=== PATIENT | male | born 1955 | race Caucasian/White ===

== ENCOUNTER 2020-10-04 19:04 | Inpatient (IN) ==
[2020-10-04] MEDS ORDERED: SODIUM CHLORIDE 0.9% 500 ML IV STA (19:53)
--- NOTE | 2020-10-04 19:56 | Emergency Department Note ---
Impression & Plan Hepatitis, Acute kidney injury, Abdominal pain, Elevated troponin I level ED Provider Note NAME: KAVIN TENORIO AGE: 64 SEX: M : 1955 ARRIVES VIA: Walk-In INFORMANT: Patient, ED PROVIDER(S): Noé Cano DO CHIEF COMPLAINT: Generalized weakness HPI: The patient is a 64-year-old male who presented to the emergency department for generalized weakness. The patient states that he was seen by his primary care physician recently and had laboratory studies done as an outpatient. The patient was found to have very significant abnormalities in his laboratory studies including his liver function studies as well as his creatinine. He has noticed shortness of breath as well as abdominal pain. He notices upper abdominal pain which began over the course the last few days. He also notices lower extremity swelling. He also notices that he has been very short of breath with any exertion. The patient self does not use alcohol overly. He may drink small amounts of alcoholic beverages but it is not daily. The patient has not been using Tylenol recently. He does not have a history of cirrhosis or hepatitis. He is not had any fevers but he did have a recent episode of bilateral pneumonia last month. He states he was treated with antibiotics. The patient had laboratory studies drawn by his primary care physician he was told to go either to our facility for further work-up or possible admission. The patient states his symptoms are worsened with any exertion. ROS: See above HPI for pertinent positives & negatives. A total of 10 systems reviewed and were otherwise negative. PAST MEDICAL HISTORY: See Below PAST SURGICAL HISTORY: See Below FAMILY HISTORY: See Below SOCIAL HISTORY: See Below HOME MEDICATIONS: See Below ALLERGIES: See Below VITALS: See Below PHYSICAL EXAMINATION: GENERAL: Patient is awake alert in no acute distress patient is resting comfortably and showing no signs of anxiety EYES: The conjunctivae are clear. The pupils are round and reactive. EARS, NOSE, MOUTH AND THROAT: The nose is without any evidence of any deformity. Mucous membranes are moist. Tongue is midline. NECK: The neck is nontender and supple. RESPIRATORY: Normal respiratory effort is noted there is no evidence of wheezing rhonchi or rales CARDIOVASCULAR: Regular rate and rhythm noted there no murmurs rubs or gallops normal S1 normal S2. GASTROINTESTINAL: The abdomen is soft. Abdomen is nontender. PELVIS: The Pelvis is stable. No tenderness to palpation is noted. BACK: No midline tenderness or or step-off noted range of motion in flexion extension as well as rotation no signs of muscle spasm noted MUSCULOSKELETAL/EXTREMITIES: There is no evidence of gross deformity full range of motion is noted in the hips and shoulders. SKIN: There is no obvious evidence of any rash. There are no petechiae, pallor or cyanosis noted. NEUROLOGIC: Patient is awake alert and oriented x3 strength is symmetric patellar reflexes are 2+ bilaterally MEDICAL DECISION MAKING: The patient is a 64-year-old male who presented to the emergency department for an evaluation of upper abdominal pain. The patient has been complaining of symptoms over the course the last 2 weeks. He was treated for pneumonia 2 months ago. He saw his family doctor for the symptoms today and had outpatient laboratory studies drawn which showed very significant abnormalities including abnormal liver function studies and acute kidney injury. The patient was advised to go to [facility] for further evaluation. I discussed the patient's laboratory and radiographic studies with him. Given his findings I also discussed his case with the on-call [facility] hospitalist. They have agreed to evaluate the patient in the emergency department for further management and disposition. Triage Nursing notes reviewed. Prior medical records reviewed Vital Signs: reviewed and remarkable for elevated blood pressure. Differential diagnosis: Etiologies such as appendicitis, diverticulitis, obstruction, inflammatory bowel disease, renal colic, PUD, biliary pathology, pancreatitis, mesenteric ischemia, aortic pathology, infections, genitourinary, UTI, perforated viscus, as well as others were entertained. ER treatment provided: See below Diagnostics interpreted by me: ECG: EKG was obtained in the emergency department. My interpretation is sinus rhythm at 86 bpm. Frequent PVCs were noted. Diffuse ST segment abnormalities were noted. No previous tracing was available for comparison. Cardiac Monitoring: An order was placed for continuous cardiac monitoring. The monitor shows a rate of 88 bpm with sinus with frequent PVCs rhythm. Laboratory studies: As stated above and show below. Imaging studies: See below Consultation(s): I discussed this case with Dr. Cortes. He will evaluate the patient in the emergency department for further management and disposition. Past Med/Surg History Medical History Basal cell carcinoma Diabetes High cholesterol Hypertension Social History (Updated 10/04/20 @ 19:56 by Noé Cano DO) Smoking Status: Former smoker Hx Alcohol Use: Yes Alcohol type: beer Alcohol Intake Frequency: Monthly or Less Preferred Language: Frisian Feels Safe at Home: Yes Allergies Allergies Allergy/AdvReac Type Severity Reaction Status Date / Time Penicillins Allergy Severe Swelling Verified 10/04/20 22:52 of Lip/Tongue/Throat Home Meds Home Medications Medication Instructions Recorded Confirmed aspirin 81 mg tablet,delayed 81 mg PO QA 10/04/20 10/04/20 release (Aspirin Low Dose) bupropion HCl 300 mg 24 hr tablet, 300 mg PO [facility] 10/04/20 10/04/20 extended release cyanocobalamin (vitamin B-12) 1,000 mcg PO QA 10/04/20 10/04/20 1,000 mcg tablet (Vitamin B-12) fenofibrate 160 mg tablet 160 mg PO 10/04/20 10/04/20 glyburide 5 mg-metformin 500 mg 1 tab PO QA 10/04/20 10/04/20 tablet insulin detemir U-100 100 unit/mL 40 unit SUBCUT [facility] 10/04/20 10/04/20 (3 mL) subcutaneous pen (Levemir FlexTouch U-100 Insulin) lisinopril 10 1 tab PO [facility] 10/04/20 10/04/20 mg-hydrochlorothiazide 12.5 mg tablet pravastatin 40 mg tablet 40 mg PO QPM 10/04/20 10/04/20 torsemide 20 mg tablet 20 mg PO QAM 10/04/20 10/04/20 trazodone 100 mg tablet 50 mg PO 10/04/20 10/04/20 Results & Data (ED) Vital Signs Vital Signs - 24 hr 10/04/20 19:18 10/04/20 19:46 10/04/20 19:50 Temperature 36.7 C Temperature Source Temporal Artery Scan Pulse Rate 41 L 87 83 Pulse Rate from SpO2 Sensor Pulse Rhythm Regular Pulse Strength Normal Respiratory Rate 18 28 H 22 Respiratory Effort / Characteristics Non-Labored Spontaneous Respiratory Depth Normal Respiratory Pattern Regular Blood Pressure 158/72 H Blood Pressure Mean 100 Blood Pressure Position Sitting Pulse Oximetry 98 Oxygen Delivery Method Room Air Sepsis Recent Fever Within 48 Hours No Sepsis New/Unexplained Change in Mental Status N/A Sepsis Action Taken by Nursing No Action Required 10/04/20 20:00 10/04/20 20:07 10/04/20 20:10 Temperature Temperature Source Pulse Rate 82 82 Pulse Rate from SpO2 Sensor Pulse Rhythm Pulse Strength Respiratory Rate 28 H 23 Respiratory Effort / Characteristics Respiratory Depth Respiratory Pattern Blood Pressure Blood Pressure Mean Blood Pressure Position Pulse Oximetry 99 Oxygen Delivery Method Room Air Sepsis Recent Fever Within 48 Hours Sepsis New/Unexplained Change in Mental Status Sepsis Action Taken by Nursing 10/04/20 20:20 10/04/20 20:30 10/04/20 20:49 Temperature Temperature Source Pulse Rate 83 84 84 Pulse Rate from SpO2 Sensor Pulse Rhythm Pulse Strength Respiratory Rate 13 30 H 16 Respiratory Effort / Characteristics Respiratory Depth Respiratory Pattern Blood Pressure Blood Pressure Mean Blood Pressure Position Pulse Oximetry Oxygen Delivery Method Sepsis Recent Fever Within 48 Hours Sepsis New/Unexplained Change in Mental Status Sepsis Action Taken by Nursing 10/04/20 20:50 10/04/20 21:00 10/04/20 21:10 Temperature Temperature Source Pulse Rate 83 82 82 Pulse Rate from SpO2 Sensor 41 L 41 L Pulse Rhythm Pulse Strength Respiratory Rate 20 18 23 Respiratory Effort / Characteristics Respiratory Depth Respiratory Pattern Blood Pressure Blood Pressure Mean Blood Pressure Position Pulse Oximetry 98 96 Oxygen Delivery Method Sepsis Recent Fever Within 48 Hours Sepsis New/Unexplained Change in Mental Status Sepsis Action Taken by Nursing 10/04/20 21:20 10/04/20 21:30 Temperature Temperature Source Pulse Rate 83 83 Pulse Rate from SpO2 Sensor 41 L Pulse Rhythm Pulse Strength Respiratory Rate 10 L 16 Respiratory Effort / Characteristics Respiratory Depth Respiratory Pattern Blood Pressure Blood Pressure Mean Blood Pressure Position Pulse Oximetry 99 Oxygen Delivery Method Sepsis Recent Fever Within 48 Hours Sepsis New/Unexplained Change in Mental Status Sepsis Action Taken by Retirement Medications Current Medication List: was personally reviewed by me Laboratory Data Attestation: I reviewed the patient's lab results. Result diagrams: 10/04/20 Unknown 10/04/20 Unknown Lab Results 10/04/20 10/04/20 10/04/20 Range/Units 19:51 21:12 22:14 WBC (4.8-10.8) K/uL RBC (4.7-6.1) M/uL Hgb (14.0-18.0) g/dL Hct (42-52) % MCV (80-100) fL MCH (25-34) pg MCHC (32-36) g/dL RDW Std Deviation (36.4-46.3) fL RDW Coeff of Dwight (11.5-14.5) % Plt Count (130-400) K/uL MPV (7.4-10.4) fL Immature Gran % (Auto) % Neut % (Auto) % Lymph % (Auto) % [place] % (Auto) % Eos % (Auto) % Baso % (Auto) % Neut # (Auto) (1.4-6.5) K/uL Lymph # (Auto) (1.2-3.4) K/uL [place] # (Auto) (0.11-0.59) K/uL Eos # (Auto) (0-0.5) K/uL Baso # (Auto) (0-0.2) K/uL Immature Gran # (Auto) (0.00-0.02) K/uL PT (9.0-12.0) Seconds INR (0.9-1.1) APTT (21.0-31.0) Seconds PTT Ratio Sodium (136-145) mmol/L Potassium (3.5-5.1) mmol/L Chloride (98-107) mmol/L Carbon Dioxide (21-32) mmol/L Anion Gap (3-11) BUN (7-18) mg/dl Creatinine (0.6-1.4) mg/dl Est Cr Clr Drug Dosing ml/min Est GFR ( Amer) ml/min Est GFR (Non-Af Amer) ml/min BUN/Creatinine Ratio (10-20) Glucose (70-99) mg/dl POC Glucose 166 H (70-99) mg/dl Lactate (0.4-2.0) mmol/L Calcium (8.5-10.1) mg/dl Total Bilirubin (0.2-1) mg/dl Direct Bilirubin (0-0.2) mg/dl AST (15-37) U/L ALT (12-78) U/L Alkaline Phosphatase (45-117) U/L Ammonia (11-32) umol/L Troponin I (0-0.045) ng/ml Total Protein (6.4-8.2) gm/dl Albumin (3.4-5.0) gm/dl Lipase (73-393) U/L Acetaminophen (10-30) ug/ml Anaplasma Smear COVID-19 Eval Order Hep Bs Antigen Neg (Neg) Hepatitis C Antibody Neg (Neg) 10/04/20 10/04/20 10/04/20 Range/Units 22:44 Unknown Unknown WBC 13.93 H (4.8-10.8) K/uL RBC 5.30 (4.7-6.1) M/uL Hgb 16.8 (14.0-18.0) g/dL Hct 46.5 (42-52) % MCV 87.7 (80-100) fL MCH 31.7 (25-34) pg MCHC 36.1 H (32-36) g/dL RDW Std Deviation 52.0 H (36.4-46.3) fL RDW Coeff of Dwight 16.3 H (11.5-14.5) % Plt Count 260 (130-400) K/uL MPV 11.9 H (7.4-10.4) fL Immature Gran % (Auto) 0.4 % Neut % (Auto) 72.8 % Lymph % (Auto) 13.3 % [place] % (Auto) 12.8 % Eos % (Auto) 0.2 % Baso % (Auto) 0.5 % Neut # (Auto) 10.14 H (1.4-6.5) K/uL Lymph # (Auto) 1.85 (1.2-3.4) K/uL [place] # (Auto) 1.78 H (0.11-0.59) K/uL Eos # (Auto) 0.03 (0-0.5) K/uL Baso # (Auto) 0.07 (0-0.2) K/uL Immature Gran # (Auto) 0.06 H (0.00-0.02) K/uL PT 15.9 H (9.0-12.0) Seconds INR 1.6 H (0.9-1.1) APTT 30.3 (21.0-31.0) Seconds PTT Ratio 1.2 Sodium (136-145) mmol/L Potassium (3.5-5.1) mmol/L Chloride (98-107) mmol/L Carbon Dioxide (21-32) mmol/L Anion Gap (3-11) BUN (7-18) mg/dl Creatinine (0.6-1.4) mg/dl Est Cr Clr Drug Dosing ml/min Est GFR ( Amer) ml/min Est GFR (Non-Af Amer) ml/min BUN/Creatinine Ratio (10-20) Glucose (70-99) mg/dl POC Glucose (70-99) mg/dl Lactate (0.4-2.0) mmol/L Calcium (8.5-10.1) mg/dl Total Bilirubin (0.2-1) mg/dl Direct Bilirubin (0-0.2) mg/dl AST (15-37) U/L ALT (12-78) U/L Alkaline Phosphatase (45-117) U/L Ammonia (11-32) umol/L Troponin I (0-0.045) ng/ml Total Protein (6.4-8.2) gm/dl Albumin (3.4-5.0) gm/dl Lipase (73-393) U/L Acetaminophen (10-30) ug/ml Anaplasma Smear COVID-19 Eval Order Covid19 at [facility] Hep Bs Antigen (Neg) Hepatitis C Antibody (Neg) 10/04/20 10/04/20 10/04/20 Range/Units Unknown Unknown Unknown WBC (4.8-10.8) K/uL RBC (4.7-6.1) M/uL Hgb (14.0-18.0) g/dL Hct (42-52) % MCV (80-100) fL MCH (25-34) pg MCHC (32-36) g/dL RDW Std Deviation (36.4-46.3) fL RDW Coeff of Dwight (11.5-14.5) % Plt Count (130-400) K/uL MPV (7.4-10.4) fL Immature Gran % (Auto) % Neut % (Auto) % Lymph % (Auto) % [place] % (Auto) % Eos % (Auto) % Baso % (Auto) % Neut # (Auto) (1.4-6.5) K/uL Lymph # (Auto) (1.2-3.4) K/uL [place] # (Auto) (0.11-0.59) K/uL Eos # (Auto) (0-0.5) K/uL Baso # (Auto) (0-0.2) K/uL Immature Gran # (Auto) (0.00-0.02) K/uL PT (9.0-12.0) Seconds INR (0.9-1.1) APTT (21.0-31.0) Seconds PTT Ratio Sodium 135 L (136-145) mmol/L Potassium 4.8 (3.5-5.1) mmol/L Chloride 101 (98-107) mmol/L Carbon Dioxide 23 (21-32) mmol/L Anion Gap 11.0 (3-11) BUN 52 H (7-18) mg/dl Creatinine 2.31 H (0.6-1.4) mg/dl Est Cr Clr Drug Dosing 41.0 ml/min Est GFR ( Amer) 33.8 ml/min Est GFR (Non-Af Amer) 29.2 ml/min BUN/Creatinine Ratio 22.6 H (10-20) Glucose 165 H (70-99) mg/dl POC Glucose (70-99) mg/dl Lactate 2.5 H* (0.4-2.0) mmol/L Calcium 9.6 (8.5-10.1) mg/dl Total Bilirubin 2.1 H (0.2-1) mg/dl Direct Bilirubin 1.4 H (0-0.2) mg/dl AST 2611 H (15-37) U/L ALT 1813 H (12-78) U/L Alkaline Phosphatase 17 L (45-117) U/L Ammonia 32.2 H (11-32) umol/L Troponin I 0.907 H* (0-0.045) ng/ml Total Protein 7.3 (6.4-8.2) gm/dl Albumin 3.5 (3.4-5.0) gm/dl Lipase 523 H (73-393) U/L Acetaminophen (10-30) ug/ml Anaplasma Smear COVID-19 Eval Order Hep Bs Antigen (Neg) Hepatitis C Antibody (Neg) 10/04/20 Range/Units Unknown WBC (4.8-10.8) K/uL RBC (4.7-6.1) M/uL Hgb (14.0-18.0) g/dL Hct (42-52) % MCV (80-100) fL MCH (25-34) pg MCHC (32-36) g/dL RDW Std Deviation (36.4-46.3) fL RDW Coeff of Dwight (11.5-14.5) % Plt Count (130-400) K/uL MPV (7.4-10.4) fL Immature Gran % (Auto) % Neut % (Auto) % Lymph % (Auto) % [place] % (Auto) % Eos % (Auto) % Baso % (Auto) % Neut # (Auto) (1.4-6.5) K/uL Lymph # (Auto) (1.2-3.4) K/uL [place] # (Auto) (0.11-0.59) K/uL Eos # (Auto) (0-0.5) K/uL Baso # (Auto) (0-0.2) K/uL Immature Gran # (Auto) (0.00-0.02) K/uL PT (9.0-12.0) Seconds INR (0.9-1.1) APTT (21.0-31.0) Seconds PTT Ratio Sodium (136-145) mmol/L Potassium (3.5-5.1) mmol/L Chloride (98-107) mmol/L Carbon Dioxide (21-32) mmol/L Anion Gap (3-11) BUN (7-18) mg/dl Creatinine (0.6-1.4) mg/dl Est Cr Clr Drug Dosing ml/min Est GFR ( Amer) ml/min Est GFR (Non-Af Amer) ml/min BUN/Creatinine Ratio (10-20) Glucose (70-99) mg/dl POC Glucose (70-99) mg/dl Lactate (0.4-2.0) mmol/L Calcium (8.5-10.1) mg/dl Total Bilirubin (0.2-1) mg/dl Direct Bilirubin (0-0.2) mg/dl AST (15-37) U/L ALT (12-78) U/L Alkaline Phosphatase (45-117) U/L Ammonia (11-32) umol/L Troponin I (0-0.045) ng/ml Total Protein (6.4-8.2) gm/dl Albumin (3.4-5.0) gm/dl Lipase (73-393) U/L Acetaminophen (10-30) ug/ml Anaplasma Smear Cancelled COVID-19 Eval Order Hep Bs Antigen (Neg) Hepatitis C Antibody (Neg) Administered Medications Discontinued Medications Sodium Chloride (Nss) 500 mls @ 999 mls/hr IV .Q31M STA Stop: 10/04/20 20:23 Last Infusion: 10/04/20 22:18 Dose: 0 mls/hr Documented by: [id number] Admin: 10/04/20 21:34 Dose: 999 mls/hr Documented by: [id number] Lorazepam (Ativan) 1 mg in 2 mls @ 2 mls/min IV NOW STA Stop: 10/04/20 20:27 Last Admin: 10/04/20 20:32 Dose: 2 mls/min Documented by: [id number] Imaging Data Radiologist's Impression: Abdomen/Pelvis CT 10/04/20 19:[address] WITHOUT CONTRAST CT DOSE: 993.06 mGy.cm HISTORY: Acute generalized abdominal pain pain TECHNIQUE: Multiaxial CT images of the abdomen and pelvis were performed without contrast. A dose lowering technique was utilized adhering to the principles of ALARA. COMPARISON STUDY: Chest radiograph of same day, MRI lumbar spine 08/08/2011 FINDINGS: Cardiomegaly. Trace pericardial effusion. Coronary artery calcifications. Trace left and small right pleural effusions. Lung bases are generally clear. No pneumatosis or pneumoperitoneum. Unremarkable spleen, moderately atrophic pancreas, adrenal glands and gallbladder. Suggested mild hepatic steatosis. Trace abdominal pelvic ascites. 2.4 cm hypodense lesion suggestive of a probable cyst involves the inferior pole left kidney. Bilateral renal vascular calcifications with symmetric perinephric stranding. No hydronephrosis. Urinary bladder wall thickening. Mild prostamegaly. Extensive calcified plaque of the abdominal aorta and branch vessels. No adenopathy. No bowel obstruction or bowel wall thickening. Mild colonic diverticulosis. Normal appendix. Contrast opacified loops of small bowel within the pelvis. Tiny fat filled umbilical hernia. Generalized body wall edema. Degenerative changes of the spine, pelvis and hips. IMPRESSION: 1. Cardiomegaly with small right and trace left pleural effusions. 2. Trace abdominal pelvic ascites with body wall edema. 3. No bowel obstruction or bowel wall thickening. 4. Colonic diverticulosis. 5. Mild urinary bladder wall thickening. Correlate with urinalysis to exclude cystitis. ACT 112: Negative or not required by law. The above report was generated using voice recognition software. It may contain grammatical, syntax or spelling errors. Electronically signed by: Gino Briceno M.D. 10/04/2020 8:57 PM Chest X-Ray 10/04/20 19:54 XR chest 1V portable HISTORY: 64 years-old Male SOB acute shortness of breath COMPARISON: None TECHNIQUE: AP and lateral views of the chest FINDINGS: Cardiac silhouette is moderately enlarged. Mild pulmonary vascular congestion. No pneumothorax, large pleural effusion or overt pulmonary edema. No lobar airspace. Azygos fissure. Calcified plaque of the thoracic aorta. Degenerative changes of the shoulders and spine. IMPRESSION: Cardiomegaly with pulmonary vascular congestion. ACT 112: Negative or not required by law. The above report was generated using voice recognition software. It may contain grammatical, syntax or spelling errors. Electronically signed by: Gino Briceno M.D. 10/04/2020 8:34 PM Discharge Plan Visit Data Chief Complaint: Abnormal Labs/Diagnostic Testing Stated Complaint: MULTIPLE LIVER ENZYMES 3,000, REFERRED BY DOCTOR ED Provider: Noé Cano Discharge Problem: Hepatitis, Acute kidney injury, Abdominal pain, Elevated troponin I level Patient Disposition: Being Evaluated by Hospitalist Condition: Good Forms Stand Alone Forms: My [employer] Prescriptions Prescriptions: No Action pravastatin 40 mg tablet 40 mg PO QPM RF: 0 trazodone 100 mg tablet 50 mg PO HS RF: 0 glyburide-metformin 5-500 mg tablet 1 tab PO QAM RF: 0 lisinopril-hydrochlorothiazide 10-12.5 mg tablet 1 tab PO QAM RF: 0 bupropion HCl 300 mg tablet extended release 24 hr 300 mg PO QAM RF: 0 torsemide 20 mg tablet 20 mg PO QAM RF: 0 fenofibrate 160 mg tablet 160 mg PO HS RF: 0 aspirin [Aspirin Low Dose] 81 mg Tablet,Delayed Release (Dr/Ec) 81 mg PO QAM RF: 0 cyanocobalamin (vitamin B-12) [Vitamin B-12] 1,000 mcg Tablet 1,000 mcg PO QAM RF: 0 Levemir FlexTouch U-100 Insuln 100 unit/mL (3 mL) insulin pen 40 unit SUBCUT QAM RF: 0 Referrals Referrals: PCP,NO [Physician] -
[2020-10-04 20:26] LABS: Basophils # (auto) 0.07 K/uL (0-0.2); Basophils % (auto) 0.5 %; Eosinophils # (auto) 0.03 K/uL (0-0.5); Eosinophils % (auto) 0.2 %; Hematocrit (blood only) 46.5 % (42-52); Hemoglobin 16.8 g/dL (14.0-18.0); Immature Granulocytes # (auto) 0.06 K/uL (0.00-0.02); Immature Granulocytes % (auto) 0.4 %; Lymphocytes # (auto) 1.85 K/uL (1.2-3.4); Lymphocytes % (auto) 13.3 %; Mean Corpuscular Hemoglobin 31.7 pg (25-34); Mean Corpuscular Hgb Conc 36.1 g/dL (32-36); Mean Corpuscular Volume 87.7 fL (80-100); Mean Platelet Volume 11.9 fL (7.4-10.4); Monocytes # (auto) 1.78 K/uL (0.11-0.59); Monocytes % (auto) 12.8 %; Neutrophils # (auto) 10.14 K/uL (1.4-6.5); Neutrophils % (auto) 72.8 %; Platelet Count 260 K/uL (130-400); RDW Coefficient of Variation 16.3 % (11.5-14.5); White Blood Count 13.93 K/uL (4.8-10.8)
[2020-10-04] MEDS ORDERED: LORazepam 1 MG/2 ML VIAL IV STA (20:26)
--- NOTE | 2020-10-04 20:36 | XRay Report ---
XR chest 1V portable HISTORY: 64 years-old Male SOB acute shortness of breath COMPARISON: None TECHNIQUE: AP and lateral views of the chest FINDINGS: Cardiac silhouette is moderately enlarged. Mild pulmonary vascular congestion. No pneumothorax, large pleural effusion or overt pulmonary edema. No lobar airspace. Azygos fissure. Calcified plaque of th e thoracic aorta. Degenerative changes of the shoulders and spine. IMPRESSION: Cardiomegaly with pulmonary vascular congestion. ACT 112: Negative or not required by law. The above report was generated using voice recognition software. It may contain grammatical, syntax o r spelling errors. Electronically signed by: Gino Briceno M.D. 10/04/2020 8:34 PM
[2020-10-04 20:48] LABS: Albumin Level 3.5 gm/dl (3.4-5.0); BUN Creatinine Ratio 22.6 (10-20); Bilirubin Direct 1.4 mg/dl (0-0.2); Calcium 9.6 mg/dl (8.5-10.1); Est GFR (African American) 33.8 ml/min; Est GFR (Non-African American) 29.2 ml/min; Potassium 4.8 mmol/L (3.5-5.1)
[2020-10-04 20:50] LABS: INR 1.6 (0.9-1.1); Partial Thromboplastin Ratio 1.2; Partial Thromboplastin Time 30.3 Seconds (21.0-31.0); Prothrombin Time 15.9 Seconds (9.0-12.0)
--- NOTE | 2020-10-04 20:59 | CT Scan Report ---
ABDOMEN AND PELVIS CT WITHOUT CONTRAST CT DOSE: 993.06 mGy.cm HISTORY: Acute generalized abdominal pain pain TECHNIQUE: Multiaxial CT images of the abdomen and pelvis were performed without contrast. A dose lo wering technique was utilized adhering to the principles of ALARA. COMPARISON STUDY: Chest radiograph of same day, MRI lumbar spine 08/08/2011 FINDINGS: Cardiomegaly. Trace pericardial effusion. Coronary artery calcifications. Trace left and sm all right pleural effusions. Lung bases are generally clear. No pneumatosis or pneumoperitoneum. Unre markable spleen, moderately atrophic pancreas, adrenal glands and gallbladder. Suggested mild hepatic steatosis. Trace abdominal pelvic ascites. 2.4 cm hypodense lesion suggestive of a probable cyst involves the inferior pole left kidney. Bilater al renal vascular calcifications with symmetric perinephric stranding. No hydronephrosis. Urinary barb dder wall thickening. Mild prostamegaly. Extensive calcified plaque of the abdominal aorta and branch vessels. No adenopathy. No bowel obstruction or bowel wall thickening. Mild colonic diverticulosis. Normal appendix. Contrast opacified loops of small bowel within the pelvis. Tiny fat filled umbilical hernia. Generalized body wall edema. Degenerative changes of the spine, pelvis and hips. IMPRESSION: 1. Cardiomegaly with small right and trace left pleural effusions. 2. Trace abdominal pelvic ascites with body wall edema. 3. No bowel obstruction or bowel wall thickening. 4. Colonic diverticulosis. 5. Mild urinary bladder wall thickening. Correlate with urinalysis to exclude cystitis. ACT 112: Negative or not required by law. The above report was generated using voice recognition software. It may contain grammatical, syntax o r spelling errors. Electronically signed by: Gino Briceno M.D. 10/04/2020 8:57 PM
[2020-10-04 21:14] LABS: Bilirubin,Total 2.1 mg/dl (0.2-1); Total Protein 7.3 gm/dl (6.4-8.2); Troponin I 0.907 ng/ml (0-0.045)
[2020-10-04 22:24] LABS: Hepatitis B Surf Ag Rflx Conf Neg (Neg)
[2020-10-04 22:58] LABS: Hepatitis C IgG 13Yrs+Old_Rflx Neg (Neg)
--- NOTE | 2020-10-04 23:04 | History & Physical Report ---
Date of Service October 04, 2020 Assessment & Plan (1) Acute liver disease: Plan: Dheeraj Kay is a 64-year-old male with past medical history significant for hypertension, hyperlipidemia, type 2 diabetes; who presents for generalized weakness associated with abdominal pain and outpatient abnormal laboratory studies. Acute liver injury: -Uncertain etiology of patient's acute acute liver injury significantly elevated AST, ALT -Consideration of tickborne illness relation to acute liver injury, portal vein thrombosis, hepatocellular carcinoma, viral illness, toxidrome -Given elevation of AST, ALT, bilirubin, INR, creatinine; patient has any MELD score of 25, and a Child-Crawford class B -CT abdomen pelvis demonstrating trace abdominal pelvic ascites, hepatic steatosis, atrophic pancreas, adrenal glands, and gallbladder -Ammonia level minimally elevated to 32.2, however not associated with encephalopathy -Lipase 523 -Acute hepatitis panel pending -Acetaminophen panel pending -Panel for tickborne illnesses including anaplasmosis, babesiosis, ehrlichiosis pending -ESR, CRP pending -EBV, CMV pending -Urine tox pending -Alpha-fetoprotein pending -Portal vein ultrasound pending Acute kidney injury: -Creatinine of 2.31 on admission -Concerned that this relates to potential liver injury/failure -Continue IV fluids recheck in a.m. Elevated troponin: -Troponin elevated on admission to 0.907 -Not associated with any chest pain, or shortness of breath -Continue to monitor q8h Hypertension/hyperlipidemia: -Holding home oral regimen at this time Type 2 diabetes: -Hold home oral glyburide/Metformin -Sliding scale insulin while in hospital -BSGs AC at bedtime/every 6 while n.p.o. Diet: N.p.o. CODE STATUS: DNI (2) Acute kidney injury: (3) Elevated troponin I level: (4) Abdominal pain: History of Present Illness Primary Care Provider: Sangita Nguyen MD Dheeraj Kay is a 64-year-old male with past medical history significant for hypertension, hyperlipidemia, type 2 diabetes; who presents for generalized weakness associated with abdominal pain and outpatient abnormal laboratory studies. This is worsened over the course of last several days, with this weekend being worse. Laboratory evaluation by his PCP demonstrated abnormal LFTs, as well as abnormal creatinine. For this reason he was sent for further evaluation. Continues to have an upper abdominal pain that is intermittent at times, and not alleviated or improved with repositioning. Is associated with small amount of nausea, but no vomiting. No changes to bowel movements over t his time. Has had a decreased appetite in the setting of this nausea. He does have numerous bug bites and tick bites over his lower extremities, after working in the yard for this last several days prior to this. None of these were concerning to him at first, however given the extent of his fatigue and weakness this became a new concern. Has not been tested for tickborne illnesses Does not drink alcohol, does not utilize recreational drugs. No recent exposures to other illnesses. No known history with viral hepatitis, or cirrhosis; does not know if he was vaccinated against hepatitis A. Allergies Allergy/AdvReac Type Severity Reaction Status Date / Time Penicillins Allergy Severe Swelling Verified 10/04/20 22:52 of Lip/Tongue/Throat Past Med/Surg History Medical History Basal cell carcinoma Diabetes High cholesterol Hypertension Pneumonia (~07/2020) Social History Smoking Status: Former smoker Second Hand Exposure: No; Hx Alcohol Use: Yes Alcohol type: beer and hard liquor Alcohol Intake Frequency: Monthly or Less Hx Substance Use: No Preferred Language: Upper Sorbian Communication Ability: Effective Lvn Required: No Beliefs That Will Affect Care: None Current Living Situation: Spouse Feels Safe at Home: Yes Assistive Devices: Cane and Glasses Review of Systems Review of Systems: All systems reviewed & are unremarkable except as noted in HPI & below Physical Exam Constitutional: WD/WN, vitals as above Eyes: PERRL, conjunctivae normal, anicteric sclerae Respiratory: normal respiratory effort, lungs clear to auscultation Auscultation: no crackles, no rales, no rhonchi and no wheezes Cardiovascular: Rate/Rhythm: regular rate and regular rhythm Heart Sounds: no gallop, no murmur and no cardiac rub Vessels: normal peripheral pulses; no JVD Extremities: no edema Gastrointestinal (Abdomen): Inspection/Auscultation: + abdomen distended and + abdominal edema; no abdominal wall ecchymosis and no visible peristalsis Percussion/Palpation: + abdomen tender, + guarding, abdomen soft, + ascites (Trace) and + tympanic to percussion; abdomen not rigid Skin: no rashes, warm and dry Neurologic: PERRL, EOMI, accommodation nl, no face palsy, no dysarthria CN's II-XI intact bilaterally and moves all extremities Psychiatric: Orientation: alert and oriented x 3 Results & Data Results & Data ([facility]) Vital Signs (Past 12 Hours) Vital Signs Temp Pulse Resp BP Pulse Ox 10/04/20 21:30 83 16 10/04/20 21:20 83 10 L 99 10/04/20 21:10 82 23 96 10/04/20 21:00 82 18 10/04/20 20:50 83 20 98 10/04/20 20:49 84 16 10/04/20 20:30 84 30 H 10/04/20 20:20 83 13 10/04/20 20:10 82 23 10/04/20 20:07 99 10/04/20 20:00 82 28 H 10/04/20 19:50 83 22 10/04/20 19:46 87 28 H 10/04/20 19:18 36.7 C 41 L 18 158/72 H 98 Laboratory Results 10/05/20 10/04/20 10/04/20 Range/Units 01:24 Unknown Unknown WBC (4.8-10.8) K/uL RBC (4.7-6.1) M/uL Hgb (14.0-18.0) g/dL Hct (42-52) % MCV (80-100) fL MCH (25-34) pg MCHC (32-36) g/dL RDW Std Deviation (36.4-46.3) fL RDW Coeff of Dwight (11.5-14.5) % Plt Count (130-400) K/uL MPV (7.4-10.4) fL Immature Gran % (Auto) % Neut % (Auto) % Lymph % (Auto) % [place] % (Auto) % Eos % (Auto) % Baso % (Auto) % Neut # (Auto) (1.4-6.5) K/uL Lymph # (Auto) (1.2-3.4) K/uL [place] # (Auto) (0.11-0.59) K/uL Eos # (Auto) (0-0.5) K/uL Baso # (Auto) (0-0.2) K/uL Immature Gran # (Auto) (0.00-0.02) K/uL PT (9.0-12.0) Seconds INR (0.9-1.1) APTT (21.0-31.0) Seconds PTT Ratio Sodium (136-145) mmol/L Potassium (3.5-5.1) mmol/L Chloride (98-107) mmol/L Carbon Dioxide (21-32) mmol/L Anion Gap (3-11) BUN (7-18) mg/dl Creatinine (0.6-1.4) mg/dl Est Cr Clr Drug Dosing ml/min Est GFR ( Amer) ml/min Est GFR (Non-Af Amer) ml/min BUN/Creatinine Ratio (10-20) Glucose (70-99) mg/dl POC Glucose 166 H (70-99) mg/dl Lactate (0.4-2.0) mmol/L Calcium (8.5-10.1) mg/dl Total Bilirubin (0.2-1) mg/dl Direct Bilirubin (0-0.2) mg/dl AST (15-37) U/L ALT (12-78) U/L Alkaline Phosphatase (45-117) U/L Ammonia 32.2 H (11-32) umol/L Troponin I (0-0.045) ng/ml Total Protein (6.4-8.2) gm/dl Albumin (3.4-5.0) gm/dl Lipase (73-393) U/L Acetaminophen (10-30) ug/ml Anaplasma Smear Cancelled Lyme Disease IgG Ab (Negative) Lyme Disease IgM Ab (Negative) COVID-19 Eval Order SARS-CoV-2 (PCR) (Negative) Hepatitis A IgM Ab Hep Bs Antigen (Neg) Hep B Core IgM Ab Hepatitis C Antibody (Neg) 10/04/20 10/04/20 10/04/20 Range/Units Unknown Unknown Unknown WBC (4.8-10.8) K/uL RBC (4.7-6.1) M/uL Hgb (14.0-18.0) g/dL Hct (42-52) % MCV (80-100) fL MCH (25-34) pg MCHC (32-36) g/dL RDW Std Deviation (36.4-46.3) fL RDW Coeff of Dwight (11.5-14.5) % Plt Count (130-400) K/uL MPV (7.4-10.4) fL Immature Gran % (Auto) % Neut % (Auto) % Lymph % (Auto) % [place] % (Auto) % Eos % (Auto) % Baso % (Auto) % Neut # (Auto) (1.4-6.5) K/uL Lymph # (Auto) (1.2-3.4) K/uL [place] # (Auto) (0.11-0.59) K/uL Eos # (Auto) (0-0.5) K/uL Baso # (Auto) (0-0.2) K/uL Immature Gran # (Auto) (0.00-0.02) K/uL PT 15.9 H (9.0-12.0) Seconds INR 1.6 H (0.9-1.1) APTT 30.3 (21.0-31.0) Seconds PTT Ratio 1.2 Sodium 135 L (136-145) mmol/L Potassium 4.8 (3.5-5.1) mmol/L Chloride 101 (98-107) mmol/L Carbon Dioxide 23 (21-32) mmol/L Anion Gap 11.0 (3-11) BUN 52 H (7-18) mg/dl Creatinine 2.31 H (0.6-1.4) mg/dl Est Cr Clr Drug Dosing 41.0 ml/min Est GFR ( Amer) 33.8 ml/min Est GFR (Non-Af Amer) 29.2 ml/min BUN/Creatinine Ratio 22.6 H (10-20) Glucose 165 H (70-99) mg/dl POC Glucose (70-99) mg/dl Lactate 2.5 H* (0.4-2.0) mmol/L Calcium 9.6 (8.5-10.1) mg/dl Total Bilirubin 2.1 H (0.2-1) mg/dl Direct Bilirubin 1.4 H (0-0.2) mg/dl AST 2611 H (15-37) U/L ALT 1813 H (12-78) U/L Alkaline Phosphatase 17 L (45-117) U/L Ammonia (11-32) umol/L Troponin I 0.907 H* (0-0.045) ng/ml Total Protein 7.3 (6.4-8.2) gm/dl Albumin 3.5 (3.4-5.0) gm/dl Lipase 523 H (73-393) U/L Acetaminophen (10-30) ug/ml Anaplasma Smear Lyme Disease IgG Ab (Negative) Lyme Disease IgM Ab (Negative) COVID-19 Eval Order SARS-CoV-2 (PCR) (Negative) Hepatitis A IgM Ab Hep Bs Antigen (Neg) Hep B Core IgM Ab Hepatitis C Antibody (Neg) 10/04/20 10/04/20 10/04/20 Range/Units Unknown 22:44 22:44 WBC 13.93 H (4.8-10.8) K/uL RBC 5.30 (4.7-6.1) M/uL Hgb 16.8 (14.0-18.0) g/dL Hct 46.5 (42-52) % MCV 87.7 (80-100) fL MCH 31.7 (25-34) pg MCHC 36.1 H (32-36) g/dL RDW Std Deviation 52.0 H (36.4-46.3) fL RDW Coeff of Dwight 16.3 H (11.5-14.5) % Plt Count 260 (130-400) K/uL MPV 11.9 H (7.4-10.4) fL Immature Gran % (Auto) 0.4 % Neut % (Auto) 72.8 % Lymph % (Auto) 13.3 % [place] % (Auto) 12.8 % Eos % (Auto) 0.2 % Baso % (Auto) 0.5 % Neut # (Auto) 10.14 H (1.4-6.5) K/uL Lymph # (Auto) 1.85 (1.2-3.4) K/uL [place] # (Auto) 1.78 H (0.11-0.59) K/uL Eos # (Auto) 0.03 (0-0.5) K/uL Baso # (Auto) 0.07 (0-0.2) K/uL Immature Gran # (Auto) 0.06 H (0.00-0.02) K/uL PT (9.0-12.0) Seconds INR (0.9-1.1) APTT (21.0-31.0) Seconds PTT Ratio Sodium (136-145) mmol/L Potassium (3.5-5.1) mmol/L Chloride (98-107) mmol/L Carbon Dioxide (21-32) mmol/L Anion Gap (3-11) BUN (7-18) mg/dl Creatinine (0.6-1.4) mg/dl Est Cr Clr Drug Dosing ml/min Est GFR ( Amer) ml/min Est GFR (Non-Af Amer) ml/min BUN/Creatinine Ratio (10-20) Glucose (70-99) mg/dl POC Glucose (70-99) mg/dl Lactate (0.4-2.0) mmol/L Calcium (8.5-10.1) mg/dl Total Bilirubin (0.2-1) mg/dl Direct Bilirubin (0-0.2) mg/dl AST (15-37) U/L ALT (12-78) U/L Alkaline Phosphatase (45-117) U/L Ammonia (11-32) umol/L Troponin I (0-0.045) ng/ml Total Protein (6.4-8.2) gm/dl Albumin (3.4-5.0) gm/dl Lipase (73-393) U/L Acetaminophen (10-30) ug/ml Anaplasma Smear See Comment Lyme Disease IgG Ab (Negative) Lyme Disease IgM Ab (Negative) COVID-19 Eval Order Covid19 at [facility] SARS-CoV-2 (PCR) NEGATIVE (Negative) Hepatitis A IgM Ab Hep Bs Antigen (Neg) Hep B Core IgM Ab Hepatitis C Antibody (Neg) 10/04/20 10/04/20 10/04/20 Range/Units 22:14 21:16 21:12 WBC (4.8-10.8) K/uL RBC (4.7-6.1) M/uL Hgb (14.0-18.0) g/dL Hct (42-52) % MCV (80-100) fL MCH (25-34) pg MCHC (32-36) g/dL RDW Std Deviation (36.4-46.3) fL RDW Coeff of Dwight (11.5-14.5) % Plt Count (130-400) K/uL MPV (7.4-10.4) fL Immature Gran % (Auto) % Neut % (Auto) % Lymph % (Auto) % [place] % (Auto) % Eos % (Auto) % Baso % (Auto) % Neut # (Auto) (1.4-6.5) K/uL Lymph # (Auto) (1.2-3.4) K/uL [place] # (Auto) (0.11-0.59) K/uL Eos # (Auto) (0-0.5) K/uL Baso # (Auto) (0-0.2) K/uL Immature Gran # (Auto) (0.00-0.02) K/uL PT (9.0-12.0) Seconds INR (0.9-1.1) APTT (21.0-31.0) Seconds PTT Ratio Sodium (136-145) mmol/L Potassium (3.5-5.1) mmol/L Chloride (98-107) mmol/L Carbon Dioxide (21-32) mmol/L Anion Gap (3-11) BUN (7-18) mg/dl Creatinine (0.6-1.4) mg/dl Est Cr Clr Drug Dosing ml/min Est GFR ( Amer) ml/min Est GFR (Non-Af Amer) ml/min BUN/Creatinine Ratio (10-20) Glucose (70-99) mg/dl POC Glucose (70-99) mg/dl Lactate (0.4-2.0) mmol/L Calcium (8.5-10.1) mg/dl Total Bilirubin (0.2-1) mg/dl Direct Bilirubin (0-0.2) mg/dl AST (15-37) U/L ALT (12-78) U/L Alkaline Phosphatase (45-117) U/L Ammonia (11-32) umol/L Troponin I (0-0.045) ng/ml Total Protein (6.4-8.2) gm/dl Albumin (3.4-5.0) gm/dl Lipase (73-393) U/L Acetaminophen (10-30) ug/ml Anaplasma Smear Lyme Disease IgG Ab Negative (Negative) Lyme Disease IgM Ab Negative (Negative) COVID-19 Eval Order SARS-CoV-2 (PCR) (Negative) Hepatitis A IgM Ab Pending Hep Bs Antigen (Neg) Hep B Core IgM Ab Pending Hepatitis C Antibody (Neg) 10/04/20 10/04/20 Range/Units 21:12 19:51 WBC (4.8-10.8) K/uL RBC (4.7-6.1) M/uL Hgb (14.0-18.0) g/dL Hct (42-52) % MCV (80-100) fL MCH (25-34) pg MCHC (32-36) g/dL RDW Std Deviation (36.4-46.3) fL RDW Coeff of Dwight (11.5-14.5) % Plt Count (130-400) K/uL MPV (7.4-10.4) fL Immature Gran % (Auto) % Neut % (Auto) % Lymph % (Auto) % [place] % (Auto) % Eos % (Auto) % Baso % (Auto) % Neut # (Auto) (1.4-6.5) K/uL Lymph # (Auto) (1.2-3.4) K/uL [place] # (Auto) (0.11-0.59) K/uL Eos # (Auto) (0-0.5) K/uL Baso # (Auto) (0-0.2) K/uL Immature Gran # (Auto) (0.00-0.02) K/uL PT (9.0-12.0) Seconds INR (0.9-1.1) APTT (21.0-31.0) Seconds PTT Ratio Sodium (136-145) mmol/L Potassium (3.5-5.1) mmol/L Chloride (98-107) mmol/L Carbon Dioxide (21-32) mmol/L Anion Gap (3-11) BUN (7-18) mg/dl Creatinine (0.6-1.4) mg/dl Est Cr Clr Drug Dosing ml/min Est GFR ( Amer) ml/min Est GFR (Non-Af Amer) ml/min BUN/Creatinine Ratio (10-20) Glucose (70-99) mg/dl POC Glucose 166 H (70-99) mg/dl Lactate (0.4-2.0) mmol/L Calcium (8.5-10.1) mg/dl Total Bilirubin (0.2-1) mg/dl Direct Bilirubin (0-0.2) mg/dl AST (15-37) U/L ALT (12-78) U/L Alkaline Phosphatase (45-117) U/L Ammonia (11-32) umol/L Troponin I (0-0.045) ng/ml Total Protein (6.4-8.2) gm/dl Albumin (3.4-5.0) gm/dl Lipase (73-393) U/L Acetaminophen (10-30) ug/ml Anaplasma Smear Lyme Disease IgG Ab (Negative) Lyme Disease IgM Ab (Negative) COVID-19 Eval Order SARS-CoV-2 (PCR) (Negative) Hepatitis A IgM Ab Hep Bs Antigen Neg (Neg) Hep B Core IgM Ab Hepatitis C Antibody Neg (Neg) Diagnostic Findings Impressions Abdomen/Pelvis CT 10/04/20 19:[address] WITHOUT CONTRAST CT DOSE: 993.06 mGy.cm HISTORY: Acute generalized abdominal pain pain TECHNIQUE: Multiaxial CT images of the abdomen and pelvis were performed without contrast. A dose lowering technique was utilized adhering to the principles of ALARA. COMPARISON STUDY: Chest radiograph of same day, MRI lumbar spine 08/08/2011 FINDINGS: Cardiomegaly. Trace pericardial effusion. Coronary artery calcifications. Trace left and small right pleural effusions. Lung bases are generally clear. No pneumatosis or pneumoperitoneum. Unremarkable spleen, moderately atrophic pancreas, adrenal glands and gallbladder. Suggested mild hepatic steatosis. Trace abdominal pelvic ascites. 2.4 cm hypodense lesion suggestive of a probable cyst involves the inferior pole left kidney. Bilateral renal vascular calcifications with symmetric perinephric stranding. No hydronephrosis. Urinary bladder wall thickening. Mild prostamegaly. Extensive calcified plaque of the abdominal aorta and branch vessels. No adenopathy. No bowel obstruction or bowel wall thickening. Mild colonic diverticulosis. Normal appendix. Contrast opacified loops of small bowel within the pelvis. Tiny fat filled umbilical hernia. Generalized body wall edema. Degenerative changes of the spine, pelvis and hips. IMPRESSION: 1. Cardiomegaly with small right and trace left pleural effusions. 2. Trace abdominal pelvic ascites with body wall edema. 3. No bowel obstruction or bowel wall thickening. 4. Colonic diverticulosis. 5. Mild urinary bladder wall thickening. Correlate with urinalysis to exclude cystitis. ACT 112: Negative or not required by law. The above report was generated using voice recognition software. It may contain grammatical, syntax or spelling errors. Electronically signed by: Gino Briceno M.D. 10/04/2020 8:57 PM Chest X-Ray 10/04/20 19:54 XR chest 1V portable HISTORY: 64 years-old Male SOB acute shortness of breath COMPARISON: None TECHNIQUE: AP and lateral views of the chest FINDINGS: Cardiac silhouette is moderately enlarged. Mild pulmonary vascular congestion. No pneumothorax, large pleural effusion or overt pulmonary edema. No lobar airspace. Azygos fissure. Calcified plaque of the thoracic aorta. Degenerative changes of the shoulders and spine. IMPRESSION: Cardiomegaly with pulmonary vascular congestion. ACT 112: Negative or not required by law. The above report was generated using voice recognition software. It may contain grammatical, syntax or spelling errors. Electronically signed by: Gino Briceno M.D. 10/04/2020 8:34 PM Medications Administered Home Medication List Medication Instructions Recorded aspirin 81 mg tablet,delayed 81 mg PO QAM 10/04/20 release (Aspirin Low Dose) bupropion HCl 300 mg 24 hr tablet, 300 mg PO QAM 10/04/20 extended release cyanocobalamin (vitamin B-12) 1,000 mcg PO QAM 10/04/20 1,000 mcg tablet (Vitamin B-12) fenofibrate 160 mg tablet 160 mg PO HS 10/04/20 glyburide 5 mg-metformin 500 mg 1 tab PO QAM 10/04/20 tablet insulin detemir U-100 100 unit/mL 40 unit SUBCUT [facility] 10/04/20 (3 mL) subcutaneous pen (Levemir FlexTouch U-100 Insulin) lisinopril 10 1 tab PO QAM 10/04/20 mg-hydrochlorothiazide 12.5 mg tablet pravastatin 40 mg tablet 40 mg PO QPM 10/04/20 torsemide 20 mg tablet 20 mg PO QAM 10/04/20 trazodone 100 mg tablet 50 mg PO HS 10/04/20 Supervising Physician Co-Signing Physician Notes Attending addendum: I have physically seen this patient, have supervised the medical residents activities, and agree with the H&P unless as otherwise noted. Assessment and Plan: Acute liver injury- AST 2611, ALT 1813, total bilirubin 2.1, direct bilirubin 1.4, INR 1.6 order acute hepatitis profile, EBV, CMV, alpha-fetoprotein, ultrasound of portal system Tickborne assessment: Anaplasmosis, babesiosis and ehrlichiosis pending Acetaminophen levels pending WONG- Creatinine 2.31 upon admission Hydration with IV fluids Does not appear to be hepatorenal at this point but needs to be followed closely repeat laboratories in a.m. Consult nephrology Elevated troponin/hypertension the patient will be admitted to telemetry for serial cardiac enzymes, serial EKG's, cardiac rhythm monitoring and a 2-D echocardiogram with Dopplers. Troponin 0.907 upon admission Resident Activity Tracking Resident Involvement: Resident Care Provided Care Provided: Adult Hospital Medicine (1) Abdominal pain Abdominal location: right upper quadrant Qualified Code(s): R10.11 - Right upper quadrant pain
[2020-10-04] MEDS: fentaNYL citrate 100 MCG/2 ML VIAL IV PRN (23:42)
[2020-10-05 00:04] LABS: Lyme Ab IgG w/WB Rflx Negative (Negative); Lyme Ab IgM w/WB Rflx Negative (Negative)
[2020-10-05] MEDS ORDERED: MAGNESIUM HYDROXIDE SUSP 30 ML UDC PO PRN (01:32)
[2020-10-05] MEDS ORDERED: ONDANSETRON INJ 2 MG/ML 2 ML VIAL IV PRN (01:32)
[2020-10-05] MEDS ORDERED: ALUMINUM/MAGNESIUM SUSP 30 ML UDC PO PRN (01:32)
[2020-10-05] MEDS ORDERED: NITROGLYCERIN SL 0.4 MG/TAB TAB SL PRN (01:32)
[2020-10-05] MEDS ORDERED: MoRPHine SULFATE 2 MG/ML CARP IV PRN ×2 (01:32→15:27)
[2020-10-05] MEDS: fentaNYL citrate 100 MCG/2 ML VIAL IV PRN (02:02)
[2020-10-05] MEDS: SODIUM CHLORIDE 0.9% 1000ML 1,000 ML IV SCH ×2 (02:02→11:30)
[2020-10-05] MEDS ORDERED: DEXTROSE 50% 50 ML SYRINGE IV PRN (05:12)
[2020-10-05] MEDS ORDERED: CARBOHYDRATES FOR HYPOGLYCEMIA PO PRN (05:12)
[2020-10-05] MEDS ORDERED: GLUCOSE 40% GEL 15 GM TUBE PO PRN (05:12)
[2020-10-05] MEDS ORDERED: GLUCOSE 10 TABS/TUBE PO PRN (05:12)
[2020-10-05] MEDS ORDERED: GLUCAGON FOR INJ 1 MG VIAL SQ PRN (05:12)
[2020-10-05 07:00] LABS: Appearance Urine Cloudy (Clear); Bilirubin Urine Negative (Negative); Blood Urine Negative (Negative); Color Urine Dark Yellow; Epithelial Cell Urine Auto >30 /lpf (0-5); Glucose Urine UA Negative (Negative); Ketones Urine Trace (Negative); Leukocyte Esterase Urine Negative (Negative); Nitrite Urine Negative (Negative); Protein Urine 1+ (Negative); RBC Urine Automated 0-4 /hpf (0-4); Specific Gravity Urine 1.017 (1.000-1.030); Urobilinogen Urine Negative (Negative)
[2020-10-05 07:17] LABS: Mucus Urine Present (None Prsent)
[2020-10-05 07:20] LABS: Bacteria Urine Automated 1+ (Negative)
[2020-10-05 07:22] LABS: Amphetamines+Metham, Urine Neg (Neg); Barbiturates, Urine Neg (Neg); Benzodiazepine, Urine Neg (Neg); Cocaine, Urine Neg (Neg); MDMA (Ecstacy), Urine Pos (Neg); Methadone, Urine Neg (Neg); Opiate, Urine Neg (Neg); Phencyclidine, Urine Neg (Neg)
[2020-10-05] MEDS: INSULIN ASPART 100 UNITS/ML 3 ML PEN SC SCH ×4 (08:23→21:08)
[2020-10-05] MEDS ORDERED: FUROSEMIDE 40 MG in SYRINGE 0 ML IV ONE (08:30)
--- NOTE | 2020-10-05 08:33 | Electrocardiogram Report ---
Test Reason : Blood Pressure : / mmHG Vent. 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
[2020-10-05 08:47] LABS: Basophils # (auto) 0.04 K/uL (0-0.2); Basophils % (auto) 0.2 %; Eosinophils # (auto) 0.01 K/uL (0-0.5); Eosinophils % (auto) 0.1 %; Hematocrit (blood only) 47.3 % (42-52); Hemoglobin 15.8 g/dL (14.0-18.0); Immature Granulocytes # (auto) 0.08 K/uL (0.00-0.02); Immature Granulocytes % (auto) 0.5 %; Lymphocytes # (auto) 1.17 K/uL (1.2-3.4); Lymphocytes % (auto) 6.7 %; Mean Corpuscular Hemoglobin 29.5 pg (25-34); Mean Corpuscular Hgb Conc 33.4 g/dL (32-36); Mean Corpuscular Volume 88.2 fL (80-100); Mean Platelet Volume 12.2 fL (7.4-10.4); Monocytes # (auto) 1.87 K/uL (0.11-0.59); Monocytes % (auto) 10.7 %; Neutrophils # (auto) 14.33 K/uL (1.4-6.5); Neutrophils % (auto) 81.8 %; Platelet Count 272 K/uL (130-400); RDW Coefficient of Variation 16.7 % (11.5-14.5); RDW Standard Deviation 53.5 fL (36.4-46.3); Red Blood Count 5.36 M/uL (4.7-6.1)
--- NOTE | 2020-10-05 08:55 | Ultrasound Report ---
US duplex portal hepatic veins CLINICAL HISTORY: 64 years-old Male presenting with acute liver injury. TECHNIQUE: Real-time grayscale ultrasound imaging of the upper abdomen was performed for a focused ev aluation at the site of clinical concern. COMPARISON: None. FINDINGS: Liver is normal in size measuring 15.5 cm and show mild diffuse increase in echogenicity and coarseni ng of echotexture which could be seen in hepatic steatosis. No thrombus visualized within splenic, portal and hepatic veins. Hepatopedal flow. IMPRESSION: 1. Hepatic steatosis. No evidence of thrombosis. Hepatopedal flow. ACT 112: Negative or not required by law. Electronically signed by: Ese Blanco DO 10/05/2020 8:54 AM
[2020-10-05] MEDS ORDERED: MoRPHine SULFATE 2 MG/ML CARP IV STA (09:16)
[2020-10-05 09:22] LABS: Albumin Level 3.5 gm/dl (3.4-5.0); BUN Creatinine Ratio 25.7 (10-20); Calcium 9.4 mg/dl (8.5-10.1); Est GFR (African American) 38.8 ml/min; Est GFR (Non-African American) 33.5 ml/min; Potassium 4.9 mmol/L (3.5-5.1)
[2020-10-05 09:41] LABS: Albumin Globulin Ratio 0.9 (0.9-2); Bilirubin,Total 2.2 mg/dl (0.2-1); Globulin 3.9 gm/dl (2.5-4.0); Total Protein 7.4 gm/dl (6.4-8.2); Troponin I 1.05 ng/ml (0-0.045)
--- NOTE | 2020-10-05 09:57 | XCELERA ---
[id number]
--- NOTE | 2020-10-05 10:05 | Medical Student Progress Note ---
Date of Service October 05, 2020 Assessment & Plan (1) Acute heart failure: Plan: Dheeraj Kay is a 64-year-old male with past medical history significant for hypertension, hyperlipidemia, type 2 diabetes; who presented to the ED on 10/04 for generalized weakness, dyspnea, and acutely worsening abdominal pain along with abnormal outpatient laboratory studies. 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 Clinical history, physical exam, labs, imaging suggestive of acute systolic heart failure. Differential includes cardiomyopathy 2/2 HTN, HLD, T2DM, previous infarcts. Likely ischemic cardiomyopathy -Initial diuresis with furosemide 40 mg IV unsuccessful, and given another dose. He was given 3 mg budesonide IV due to inadequate response -Monitor daily I/Os and weight checks -Monitor renal function -Consult cardiology for recommendations- will likely add regimen of JOHNSON inhibitor, beta liliana for decompensated heart failure treatment. Pt may need cardiac catheterization once fluid overload is managed. -CMP, Lipid panel in AM to trend electrolytes, renal function Acute Liver Injury: -Likely secondary to acute heart failure due to hepatic congestion or liver hypoperfusion. Other etiologies were explored such as tickborne illness, portal vein thrombosis, hepatocellular carcinoma, viral illness, toxidrome, and acute pancreatitis; though these etiologies were less likely due to negative workup thus far with some labs still pending -AST: 1404 (downtrending from 2611 on admission), ALT: 1556 (downtrending from 1813 on admission), TBili: 2.2, (DBili: 1.4), Cr: 2.06 (downtrending from 2.31 on admission) -Ammonia level minimally elevated to 32.2, mentions history of recent ataxia, however no associated asterixis or encephalopathy; will repeat ammonia level during hospital stay -Continue trending with CMP in AM; we're expecting improvement with the treatment of heart failure as the underlying cause Acute kidney injury: -Likely secondary to acute heart failure -Creatinine: 2.06 (downtrending from 2.31 on admission); BUN: 53 (vs 52 on admission) -Expected to improve with diuresis -Trend with CMP in AM Hyponatremia: -Na level of 135, likely secondary to acute heart failure -Trend with CMP in AM Hypertension/hyperlipidemia: -Holding home oral regimen at this time -Cardiology consult pending; will likely make recommendations about HTN management Type 2 diabetes: -Hold home oral glyburide/Metformin -Sliding scale insulin while in hospital -BSGs AC at bedtime Diet: DM2 Diet CODE STATUS: DNI (2) Acute liver disease: (3) Acute kidney injury: (4) Elevated troponin I level: (5) Abdominal pain: Abdominal location: right upper quadrant Qualified Code(s): R10.11 - Right upper quadrant pain Admission and Anticipated Discharge Date Admission Date: October 04, 2020 Supervising Attestation I was present for the doty parts of the history and physical obtained by the MS4 Caterina Asher. I have read and edited her documentation. I agree with Ms. Asher's assessment and plan. Attending Physicain Medical Student Supervision Note: I independently interviewed and examined the patient and verified the doty hi story and physical, reviewed labs and image studies, discussed the case with the medical student Caterina Asher and the Resident physician Dr. Zimmerman and agree with the findings and care plan. Subjective Overall, the patient says his pain is relatively unchanged since receiving Fentanyl in the ED overnight. He currently rates his pain as a 6/10. Earlier this morning, he was complaining of some back pain and abdominal pain, and after assessment, congestion was noticed. He was given Lasix. He is lying very still in bed during the interview. Of note, he says he has been having some "imbalance" issues while walking leading up to his admission. Review of Systems Constitutional: + fatigue and + weakness; no fever and no chills Respiratory: + dyspnea Cardiovascular: + dyspnea at rest and + orthopnea Gastrointestinal: + abdominal pain Musculoskeletal: + back pain Integumentary: no pruritus Neurologic: + unsteadiness; no abnormal movements and no confusion Physical Exam Constitutional: well developed, well nourished, + acute distress (moderate), + ill appearing, + obese and + edematous Eyes: + scleral abnormality (slight icteric sclerae in R eye) and PERRL ENMT: Mouth: no oral mucosal abnormality Respiratory: normal respiratory effort Auscultation: + wheezes (inspiratory & expiratory, b/l); no crackles, no rales and no rhonchi Cardiovascular: Rate/Rhythm: regular rate and regular rhythm Heart Sounds: + murmur (vague systolic murmur) Vessels: + JVD (equivocal; difficult to appreciate due to body habitus/position) and normal peripheral pulses Extremities: + pedal edema (2+ b/l) Gastrointestinal (Abdomen): Inspection/Auscultation: + abdomen distended, + abdominal edema and + high-pitched sounds (all 4 quadrants); no abdominal wall ecchymosis, no visible peristalsis, caput medusae absent and Mead-Sr sign absent Percussion/Palpation: + abdomen tender, abdomen soft and + ascites (Trace); abdomen not rigid and no fluid wave Musculoskeletal: Extremities: + petechiae (present on the back) and + lower leg abnormality (?bug & tick bites) Bilateral Neurologic: PERRL, EOMI, accommodation nl, no face palsy, no dysarthria moves all extremities Psychiatric: Orientation: alert Results & Data ([facility]) Vital Signs (Past 12 Hours) Vital Signs Temp Pulse Pulse Resp BP BP Pulse Ox 10/05/20 07:30 36.3 C L 71 18 170/85 H 99 10/05/20 04:22 36.4 C L 82 17 137/81 94 10/05/20 01:32 10/05/20 01:09 36.5 C 82 18 133/104 H 98 Pulse Ox 10/05/20 07:30 10/05/20 04:22 10/05/20 01:32 98 10/05/20 01:09 Laboratory Results Laboratory Results WBC 17.50 K/uL (4.8-10.8) H 10/05/20 08:27 RBC 5.36 M/uL (4.7-6.1) 10/05/20 08:27 Hgb 15.8 g/dL (14.0-18.0) 10/05/20 08:27 Hct 47.3 % (42-52) 10/05/20 08: MCV 88.2 fL (80-100) 10/05/20 08: MCH 29.5 pg (25-34) 10/05/20 08: MCHC 33.4 g/dL (32-36) 10/05/20 08: RDW Std Deviation 53.5 fL (36.4-46.3) H 10/05/20 08: RDW Coeff of Dwight 16.7 % (11.5-14.5) H 10/05/20 08: Plt Count 272 K/uL (130-400) 10/05/20 08: MPV 12.2 fL (7.4-10.4) H 10/05/20 08: Immature Gran % (Auto) 0.5 % 10/05/20 08: Neut % (Auto) 81.8 % 10/05/20 08: Lymph % (Auto) 6.7 % 10/05/20 08: [place] % (Auto) 10.7 % 10/05/20 08:27 Eos % (Auto) 0.1 % 10/05/20 08:27 Baso % (Auto) 0.2 % 10/05/20 08:27 Neut # (Auto) 14.33 K/uL (1.4-6.5) H 10/05/20 08:27 Lymph # (Auto) 1.17 K/uL (1.2-3.4) L 10/05/20 08:27 [place] # (Auto) 1.87 K/uL (0.11-0.59) H 10/05/20 08:27 Eos # (Auto) 0.01 K/uL (0-0.5) 10/05/20 08: Baso # (Auto) 0.04 K/uL (0-0.2) 10/05/20 08: Immature Gran # (Auto) 0.08 K/uL (0.00-0.02) H 10/05/20 08:27 PT 15.9 Seconds (9.0-12.0) H 10/04/20 Unknown INR 1.6 (0.9-1.1) H 10/04/20 Unknown APTT 30.3 Seconds (21.0-31.0) 10/04/20 Unknown PTT Ratio 1.2 10/04/20 Unknown Sodium 135 mmol/L (136-145) L 10/05/20 08:27 Potassium 4.9 mmol/L (3.5-5.1) 10/05/20 08:27 Chloride 104 mmol/L (98-107) 10/05/20 08:27 Carbon Dioxide 20 mmol/L (21-32) L 10/05/20 08:27 Anion Gap 11.0 (3-11) 10/05/20 08:27 BUN 53 mg/dl (7-18) H 10/05/20 08:27 Creatinine 2.06 mg/dl (0.6-1.4) H 10/05/20 08:27 Est Cr Clr Drug Dosing 46.0 ml/min 10/05/20 08:27 Est GFR ( Amer) 38.8 ml/min 10/05/20 08:27 Est GFR (Non-Af Amer) 33.5 ml/min 10/05/20 08:27 BUN/Creatinine Ratio 25.7 (10-20) H 10/05/20 08:27 Glucose 161 mg/dl (70-99) H 10/05/20 08:27 POC Glucose 157 mg/dl (70-99) H 10/05/20 07:17 Lactate 2.5 mmol/L (0.4-2.0) H* 10/04/20 Unknown Calcium 9.4 mg/dl (8.5-10.1) 10/05/20 08:27 Total Bilirubin 2.2 mg/dl (0.2-1) H 10/05/20 08:27 Direct Bilirubin 1.4 mg/dl (0-0.2) H 10/04/20 Unknown AST 1404 U/L (15-37) H 10/05/20 08:27 ALT 1556 U/L (12-78) H 10/05/20 08:27 Alkaline Phosphatase 18 U/L (45-117) L 10/05/20 08:27 Ammonia 32.2 umol/L (11-32) H 10/04/20 Unknown Troponin I 1.050 ng/ml (0-0.045) H* 10/05/20 08:27 NT-Pro-B Natriuret Pep 52166 pg/ml (0-900) H 10/05/20 08:27 Total Protein 7.4 gm/dl (6.4-8.2) 10/05/20 08:27 Albumin 3.5 gm/dl (3.4-5.0) 10/05/20 08:27 Globulin 3.9 gm/dl (2.5-4.0) 10/05/20 08:27 Albumin/Globulin Ratio 0.9 (0.9-2) 10/05/20 08:27 Lipase 523 U/L (73-393) H 10/04/20 Unknown Urine Color Dark Yellow 10/05/20 05:45 Urine Appearance Cloudy (Clear) A 10/05/20 05:45 Urine pH 5.0 (4.5-7.5) 10/05/20 05:45 Ur Specific [place] 1.017 (1.000-1.030) 10/05/20 05:45 Urine Protein 1+ (Negative) H 10/05/20 05:45 Urine Glucose (UA) Negative (Negative) 10/05/20 05:45 Urine Ketones Trace (Negative) H 10/05/20 05:45 Urine Blood Negative (Negative) 10/05/20 05:45 Urine Nitrite Negative (Negative) 10/05/20 05:45 Urine Bilirubin Negative (Negative) 10/05/20 05:45 Urine Urobilinogen Negative (Negative) 10/05/20 05:45 Ur Leukocyte Esterase Negative (Negative) 10/05/20 05:45 Urine WBC (Auto) 10-30 /hpf (0-5) H 10/05/20 05:45 Urine RBC (Auto) 0-4 /hpf (0-4) 10/05/20 05:45 U Hyaline Cast (Auto) 5-10 /lpf (0-5) H 10/05/20 05:45 U Epithel Cells (Auto) >30 /lpf (0-5) H 10/05/20 05:45 Urine Bacteria (Auto) 1+ (Negative) H 10/05/20 05:45 Ur Renal Epithelial Cell Not Reportable 10/05/20 05:45 WBC Casts 5-10 /lpf (0) H 10/05/20 05:45 Urine Mucus Present (None Prsent) A 10/05/20 05:45 Ur Butalbital Confirm Cancelled 10/05/20 05:45 Urine Opiates Screen Cancelled 10/05/20 05:45 Urine Opiates Screen Neg (Neg) 10/05/20 05:45 U Codeine Confrm GC/MS Cancelled 10/05/20 05:45 Ur Morphine (GC/MS) Cancelled 10/05/20 05:45 Ur Hydrocodone (GC/MS) Cancelled 10/05/20 05:45 U Norhydrocodone Conf Cancelled 10/05/20 05:45 Ur Oxycodone Screen Cancelled 10/05/20 05:45 U Noroxycodone Confirm Cancelled 10/05/20 05:45 Ur Oxycodone GC/MS Cancelled 10/05/20 05:45 U Oxymorphone GC/MS Cancelled 10/05/20 05:45 EDDP Confirm Cancelled 10/05/20 05:45 Ur Methadone, Qual Cancelled 10/05/20 05:45 Ur Methadone, Qual Neg (Neg) 10/05/20 05:45 Ur Methadone Cancelled 10/05/20 05:45 Ur Hydromorphone (GC/MS) Cancelled 10/05/20 05:45 Acetaminophen ug/ml (10-30) 10/04/20 22:14 Urine Barbiturates Cancelled 10/05/20 05:45 Urine Barbiturates Neg (Neg) 10/05/20 05:45 Ur Phencyclidine Scrn Cancelled 10/05/20 05:45 Ur Phencyclidine (PCP) Neg (Neg) 10/05/20 05:45 Urine PCP Confirm Cancelled 10/05/20 05:45 Ur Amphetamines Screen Cancelled 10/05/20 05:45 U Amphetamines Confirm Cancelled 10/05/20 05:45 U Amphetamin/Meth Scrn Neg (Neg) 10/05/20 05:45 Methamphetamine GC/MS Cancelled 10/05/20 05:45 MDMA (Ecstasy) Screen Pos (Neg) H 10/05/20 05:45 Ur Amobarbital GC/MS Cancelled 10/05/20 05:45 U Pentobarbital GC/MS Cancelled 10/05/20 05:45 U Phenobarbital GC/MS Cancelled 10/05/20 05:45 U Secobarbital GC/MS Cancelled 10/05/20 05:45 U [id number] GC/MS Cancelled 10/05/20 05:45 U Benzodiazepines Scrn Cancelled 10/05/20 05:45 U Benzodiazepines Scrn Neg (Neg) 10/05/20 05:45 U 7-Aminoclonazepam Screen Cancelled 10/05/20 05:45 Ur Nordiazepam GC/MS Cancelled 10/05/20 05:45 U OH-ethylfluraz GC/MS Cancelled 10/05/20 05:45 U Lorazepam Cnf GC/MS Cancelled 10/05/20 05:45 U Oxazepam Confm GC/MS Cancelled 10/05/20 05:45 Ur Temazepam Cnf GC/MS Cancelled 10/05/20 05:45 U a-Hydroxytriaz GC/MS Cancelled 10/05/20 05:45 U [id number] Cancelled 10/05/20 05:45 Urine Cocaine Cancelled 10/05/20 05:45 Ur Cocaine Metabolite Neg (Neg) 10/05/20 05:45 U Cocaine Metab Confirm Cancelled 10/05/20 05:45 Tetrahydrocannabinol Cancelled 10/05/20 05:45 U Marijuana (THC) Screen Cancelled 10/05/20 05:45 U Marijuana (THC) Screen Neg (Neg) 10/05/20 05:45 Drug Screen Comment Cancelled 10/05/20 05:45 Anaplasma Smear Cancelled 10/04/20 Unknown Anaplasma Smear See Comment 10/04/20 Unknown Lyme Disease IgG Ab Negative (Negative) 10/04/20 21:16 Lyme Disease IgM Ab Negative (Negative) 10/04/20 21:16 COVID-19 Eval Order Covid19 at [facility] 10/04/20 22:44 SARS-CoV-2 (PCR) NEGATIVE (Negative) 10/04/20 22:44 Hep Bs Antigen Neg (Neg) 10/04/20 21:12 Hepatitis C Antibody Neg (Neg) 10/04/20 21:12 Reference Lab Cancelled 10/05/20 05:45 Impressions Abdomen/Pelvis CT 10/04/20 19:[address] WITHOUT CONTRAST CT DOSE: 993.06 mGy.cm HISTORY: Acute generalized abdominal pain pain TECHNIQUE: Multiaxial CT images of the abdomen and pelvis were performed without contrast. A dose lowering technique was utilized adhering to the principles of ALARA. COMPARISON STUDY: Chest radiograph of same day, MRI lumbar spine 08/08/2011 FINDINGS: Cardiomegaly. Trace pericardial effusion. Coronary artery calcifications. Trace left and small right pleural effusions. Lung bases are generally clear. No pneumatosis or pneumoperitoneum. Unremarkable spleen, moderately atrophic pancreas, adrenal glands and gallbladder. Suggested mild hepatic steatosis. Trace abdominal pelvic ascites. 2.4 cm hypodense lesion suggestive of a probable cyst involves the inferior pole left kidney. Bilateral renal vascular calcifications with symmetric perinephric stranding. No hydronephrosis. Urinary bladder wall thickening. Mild prostamegaly. Extensive calcified plaque of the abdominal aorta and branch vess els. No adenopathy. No bowel obstruction or bowel wall thickening. Mild colonic diverticulosis. Normal appendix. Contrast opacified loops of small bowel within the pelvis. Tiny fat filled umbilical hernia. Generalized body wall edema. Degenerative changes of the spine, pelvis and hips. IMPRESSION: 1. Cardiomegaly with small right and trace left pleural effusions. 2. Trace abdominal pelvic ascites with body wall edema. 3. No bowel obstruction or bowel wall thickening. 4. Colonic diverticulosis. 5. Mild urinary bladder wall thickening. Correlate with urinalysis to exclude cystitis. ACT 112: Negative or not required by law. The above report was generated using voice recognition software. It may contain grammatical, syntax or spelling errors. Electronically signed by: Gino Briceno M.D. 10/04/2020 8:57 PM Chest X-Ray 10/04/20 19:54 XR chest 1V portable HISTORY: 64 years-old Male SOB acute shortness of breath COMPARISON: None TECHNIQUE: AP and lateral views of the chest FINDINGS: Cardiac silhouette is moderately enlarged. Mild pulmonary vascular congestion. No pneumothorax, large pleural effusion or overt pulmonary edema. No lobar airspace. Azygos fissure. Calcified plaque of the thoracic aorta. Degenerative changes of the shoulders and spine. IMPRESSION: Cardiomegaly with pulmonary vascular congestion. ACT 112: Negative or not required by law. The above report was generated using voice recognition software. It may contain grammatical, syntax or spelling errors. Electronically signed by: Gino Briceno M.D. 10/04/2020 8:34 PM Portal Vein US 10/04/20 22:55 US duplex portal hepatic veins CLINICAL HISTORY: 64 years-old Male presenting with acute liver injury. TECHNIQUE: Real-time grayscale ultrasound imaging of the upper abdomen was performed for a focused evaluation at the site of clinical concern. COMPARISON: None. FINDINGS: Liver is normal in size measuring 15.5 cm and show mild diffuse increase in echogenicity and coarsening of echotexture which could be seen in hepatic steatosis. No thrombus visualized within splenic, portal and hepatic veins. Hepatopedal flow. IMPRESSION: 1. Hepatic steatosis. No evidence of thrombosis. Hepatopedal flow. ACT 112: Negative or not required by law. Electronically signed by: Ese Blanco DO 10/05/2020 8:54 AM Medications Administered Current Inpatient Medications Al Hydrox/Mg Hydrox/Simethicone (Aluminum/Magnesium Susp 30 Ml Udc) 15 ml PO Q4H PRN PRN Reason: Dyspepsia Stop: 11/04/20 01:31 Dextrose (Dextrose 50% 50 Ml Syringe) 25 - 50 ml IV UD PRN; Protocol PRN Reason: Hypoglycemia Protocol Stop: 11/04/20 05:11 Fentanyl Citrate (Fentanyl Citrate 100 Mcg/2 Ml Vial) 50 mcg IV Q15M PRN PRN Reason: abdominal pain Stop: 10/18/20 22:17 Last Admin: 10/05/20 02:02 Dose: 50 mcg Documented by: Glucagon (Glucagon For Inj 1 Mg Vial) 1 mg SQ UD PRN; Protocol PRN Reason: Hypoglycemia Protocol Stop: 11/04/20 05:11 Glucose (Glucose 10 Tabs/Tube) 4 - 8 tabs PO UD PRN; Protocol PRN Reason: Hypoglycemia Protocol Stop: 11/04/20 05:11 Glucose (Glucose 40% Gel 15 Gm Tube) 15 - 30 gm PO UD PRN; Protocol PRN Reason: Hypoglycemia Protocol Stop: 11/04/20 05:11 Sodium Chloride (Nss 1000ml) 1,000 mls @ 120 mls/hr IV .Q8H20M PATTI Stop: 11/04/20 01:31 Last Infusion: 10/05/20 08:52 Dose: 120 mls/hr Documented by: Insulin Aspart (Insulin Aspart 100 Units/Ml 3 Ml Pen) 0 units SC ACHS PATTI Stop: 11/04/20 07:29 Last Admin: 10/05/20 08:23 Dose: 1 units Documented by: Magnesium Hydroxide (Magnesium Hydroxide Susp 30 Ml Udc) 30 ml PO Q12H PRN PRN Reason: Constipation Stop: 11/04/20 01:31 Miscellaneous (Carbohydrates For Hypoglycemia ) 15 - 30 gm PO UD PRN PRN Reason: Hypoglycemia Protocol Stop: 11/04/20 05:11 Morphine Sulfate (Morphine Sulfate 2 Mg/Ml Carp) 2 mg IV Q30M PRN PRN Reason: Chest Pain Stop: 10/19/20 01:31 Nitroglycerin (Nitroglycerin Sl 0.4 Mg/Tab Tab) 0.4 mg SL UD PRN PRN Reason: Chest Pain Stop: 11/04/20 01:31 Ondansetron HCl (Ondansetron Inj 2 Mg/Ml 2 Ml Vial) 4 mg IV Q6H PRN PRN Reason: Nausea Stop: 11/04/20 01:31 Last Admin: 10/05/20 02:25 Dose: 4 mg Documented by:
[2020-10-05] MEDS ORDERED: FUROSEMIDE 40 MG in SYRINGE 0 ML IV SCH ×2 (11:45→21:00)
[2020-10-05] MEDS ORDERED: FUROSEMIDE 40 MG/4 ML VIAL IV SCH (11:45)
[2020-10-05] MEDS: ENOXAPARIN INJ 40 MG/0.4 ML SYR SQ SCH (13:07)
[2020-10-05] MEDS ORDERED: BUMETANIDE 3 MG in SYRINGE 0 ML IV SCH (14:15)
--- NOTE | 2020-10-05 18:24 | Cardiology Consultation ---
Date of Consultation October 05, 2020 Assessment & Plan (1) Acute on chronic HFrEF (heart failure with reduced ejection fraction): Patient with no known cardiac history but multiple vascular risk factors (dyslipidemia, diabetes, hypertension) who conveys longstanding symptoms consistent with right and left subacute congestive heart failure who is found on echocardiogram to have an ischemic cardiomyopathy (prior infarcts which appear old) with markedly reduced systolic function (EF equals 25-30%). He still appears hypervolemic on exam, case was discussed with Dr. Dutton, agree with more aggressive diuresis (substituting high-dose bumetanide for lower dose furosemide). Obtain daily weights and input/output. Would aggressively afterload reduced, might avoid hydralazine with his liver function abnormalities, could use labetalol (20 mg IV every 4 hours PRN SBP>130 mm Hg, titrated upward as needed). Would initiate carvedilol orally (3.125 mg twice daily, titrated upward as tolerated). Although not manifesting ischemic symptoms, addition of long-acting nitrates could reduce preload (isosorbide mononitrate 30 mg daily). Avoid JOHNSON inhibitors or ARBs in the near term given his renal dysfunction. Will follow along and offer further recommendations based on his hemodynamics and clinical response. (2) Ischemic cardiomyopathy: As noted, no clear history of prior infarcts but evidence on echocardiogram. Would be helpful to obtain records of his hospitalization for "double pneumonia" at [facility] 2 months ago, in particular reviewing the ECGs might allow for better discernment of the timing of his prior infarcts. At some point, once he is clinically stable, would pursue further risk stratification with either dobutamine stress echocardiogram, Lexiscan, or potentially cardiac catheterization (depending upon his renal function). Management of ischemic cardiomyopathy as noted above. (3) Elevated troponin I level: Doubt acute process, his pain is clearly abdominal and not thoracic/chest at all. Elevated troponin likely demand ischemia due to adrenergic state with significant pain, hypertension, and volume overload. Troponin pattern is flat, weighing against acute event. Also, renal dysfunction may result in some degree of chronic troponin elevation. (4) Acute kidney injury: Obtain records to discern baseline renal function. Given elevated creatinine, higher dose diuretic will be needed to achieve volume unloading. Monitor renal function and electrolytes daily. (5) Abdominal pain: At this point, a unifying theme for his abdominal pain would be liver capsule stretch due to hepatic congestion from acute on chronic heart failure from his newly diagnosed ischemic cardiomyopathy. However, given the degree of discomfort he was experiencing it is prudent to continue work-up for other liver pathologies. If his pain is due to hepatic congestion, he should improve fairly quickly with volume unloading. History of Present Illness Reason for Consultation: Elevated troponin, low EF Requesting Physician: Raulito Flores MD Attending Physician: Heidi Dutton MD History of Present Illness 64-year-old man with multiple vascular risk factors (hypertension, dyslipidemia, diabetes mellitus) but no known history of coronary artery disease who was admitted yesterday (10/04/2020) with right upper quadrant abdominal pain and abnormal liver function tests. Due to reduced systolic function/evidence of old infarcts on echocardiogram and markedly elevated proBNP he is undergoing cardiology evaluation. Patient has not felt right for several years, noting dyspnea with minimal exertion, orthopnea, occasional PND, and more recent onset ankle edema. He was hospitalized at [facility] for "double pneumonia" 2 months ago. He denies any knowledge of prior myocardial infarction, cardiomyopathy, or congestive heart failure. He was placed on a diuretic around the time of his hospitalization 2 months ago, but has not been reliably taking it. At the time of my evaluation he was quite uncomfortable with right-sided abdominal pain unrelieved with morphine. He denied chest pain at any time. He denies subjective palpitations, presyncope, or syncope. Allergies Allergy/AdvReac Type Severity Reaction Status Date / Time Penicillins Allergy Severe Swelling Verified 10/04/20 22:52 of Lip/Tongue/Throat Home Medications Medication Instructions Recorded Confirmed Type aspirin 81 mg tablet,delayed 81 mg PO [facility] 10/04/20 10/04/20 History release (Aspirin Low Dose) bupropion HCl 300 mg 24 hr tablet, 300 mg PO [facility] 10/04/20 10/04/20 History extended release cyanocobalamin (vitamin B-12) 1,000 mcg PO [facility] 10/04/20 10/04/20 History 1,000 mcg tablet (Vitamin B-12) fenofibrate 160 mg tablet 160 mg PO 10/04/20 10/04/20 History glyburide 5 mg-metformin 500 mg 1 tab PO [facility] 10/04/20 10/04/20 History tablet insulin detemir U-100 100 unit/mL 40 unit SUBCUT [facility] 10/04/20 10/04/20 History (3 mL) subcutaneous pen (Levemir FlexTouch U-100 Insulin) lisinopril 10 1 tab PO QAM 10/04/20 10/04/20 History mg-hydrochlorothiazide 12.5 mg tablet pravastatin 40 mg tablet 40 mg PO QPM 10/04/20 10/04/20 History torsemide 20 mg tablet 20 mg PO QAM 10/04/20 10/04/20 History trazodone 100 mg tablet 50 mg PO HS 10/04/20 10/04/20 History Patient History Medical History Basal cell carcinoma Diabetes High cholesterol Hypertension Pneumonia (~07/2020) Social History Smoking Status: Former smoker Second Hand Exposure: No; Do You Dip or Chew Tobacco: No; Hx Alcohol Use: Yes Alcohol type: beer and hard liquor Alcohol Intake Frequency: Monthly or Less Hx Substance Use: No Preferred Language: Kyrgyz Communication Ability: Effective Card Fixer Required: No Beliefs That Will Affect Care: None Current Living Situation: Spouse Feels Safe at Home: Yes Safety Concerns: Feels Safe At This Time Assistive Devices: Cane and Glasses Physical Exam Physical Exam: Normal habitus adult white male who appears uncomfortable but not in acute distress. Blood pressure normotensive to moderately hypertensive. Pulse generally in the 80s and regular with ectopy. Skin: no ecchymoses or generalized lesions. HEENT: unremarkable. Neck: Jugular venous pulse two thirds the way to the angle of the jaw with mildly increased respiratory variation, no obvious carotid bruits. Lungs: Mildly decreased breath sounds but generally clear. No obvious wheezes or crackles. Cardiac: regular rhythm with frequent ectopy, normal S1, intact aortic closure sound, 3/6 apical holosystolic murmur rating to the axilla, no diastolic murmur. Abdomen: Right upper quadrant tenderness, no guarding or rigidity. Extremities: 1+ pretibial edema, peripheral pulses intact. Neurologic: Reticent affect (due to pain), answers questions appropriately, grossly nonfocal. Results & Data ([facility]) Vital Signs (Past 12 Hours) Vital Signs Temp Pulse Pulse Resp BP Pulse Ox 10/05/20 15:32 97.3 F L 85 18 196/69 H 96 10/05/20 14:42 88 147/77 H 10/05/20 13:14 84 10/05/20 12:00 97.5 F L 68 20 134/75 97 10/05/20 08:16 86 10/05/20 07:30 97.3 F L 71 18 170/85 H 99 Laboratory Results WBC 17.5 with normal hemoglobin and platelet count. Sodium 135, potassium 4.9, BUN 53, creatinine 2.06 (down from 2.31). Troponin curve elevated but flat (0.9, 1.0, 0.9). proBNP 13,464. AST 1404. ALT 1556. Albumin 3.5. INR 1.6. Diagnostic Findings ECG showed sinus rhythm with old inferior and anterolateral infarcts, bigeminal PVCs. No prior ECG for comparison. No acute ST deviation. Echocardiogram showed EF 25 to 30% with mild to moderate global hypokinesis and inferior and lateral akinesis with inferior wall thinning (consistent with old infarct). Calcified aortic valve with immobilized right coronary cusp and adequate excursion of remaining cusps. At least mild mitral regurgitation. Study was limited due to patient discomfort, no pulses or continuous-wave Doppler obtained. Chest x-ray showed cardiomegaly with mild pulmonary vascular congestion. Liver ultrasound showed normal liver size with increased echogenicity and no thrombus. Abdomen/pelvis CT showed cardiomegaly with small right and trace left effusions, trace pelvic ascites with body wall edema, no other acute process. PG Care Time/CCT Total # of Minutes Spent Total Time Spent with Patient: Total time spent is greater than 50% in coordination of care (as documented) at patient's floor/unit and/or counseling patient: 90 minutes. Coding Level of Care Code 65420 Inpt Consult Level 5 Diagnoses Acute kidney injury N17.9 Abdominal pain R10.11 Abdominal location: right upper quadrant Elevated troponin I level R77.8 Acute on chronic HFrEF (heart failure with reduced ejection fraction) I50.23 Ischemic cardiomyopathy I25.5 (1) Abdominal pain Abdominal location: right upper quadrant Qualified Code(s): R10.11 - Right upper quadrant pain
[2020-10-05] MEDS ORDERED: LABETALOL HCL IV 5 MG/ML 20ML IV PRN (18:51)
[2020-10-05] MEDS ORDERED: diphenhydrAMINE 50 MG/ML VIAL IV STA (23:45)
[2020-10-06] MEDS: fentaNYL citrate 100 MCG/2 ML VIAL IV PRN ×4 (00:17→11:48)
[2020-10-06 06:28] LABS: Nucleated RBC # (auto) 0.13 K/uL (0-0); Nucleated RBC % (auto) 0.5 %
[2020-10-06] MEDS ORDERED: LABETALOL HCL IV 5 MG/ML 20ML IV PRN (06:52)
[2020-10-06 07:05] LABS: Hematocrit (blood only) 51.9 % (42-52); Hemoglobin 17.5 g/dL (14.0-18.0); Mean Corpuscular Hemoglobin 29.7 pg (25-34); Mean Corpuscular Hgb Conc 33.7 g/dL (32-36); Platelet Count 104 K/uL (130-400); RDW Coefficient of Variation 17.6 % (11.5-14.5); RDW Standard Deviation 55.3 fL (36.4-46.3); White Blood Count 25.31 K/uL (4.8-10.8)
[2020-10-06 07:06] LABS: Basophils # (auto) 0.02 K/uL (0-0.2); Basophils % (auto) 0.1 %; Immature Granulocytes # (auto) 0.12 K/uL (0.00-0.02); Immature Granulocytes % (auto) 0.5 %; Lymphocytes # (auto) 1.92 K/uL (1.2-3.4); Lymphocytes % (auto) 7.6 %; Monocytes # (auto) 1.37 K/uL (0.11-0.59); Monocytes % (auto) 5.4 %; Neutrophils # (auto) 21.88 K/uL (1.4-6.5); Neutrophils % (auto) 86.4 %
[2020-10-06 07:26] LABS: Albumin Level 3.6 gm/dl (3.4-5.0); BUN Creatinine Ratio 21.6 (10-20); Calcium 9.3 mg/dl (8.5-10.1); Creatinine Clr Calc Pharmacy 28.2 ml/min; Est GFR (African American) 20.8 ml/min; Globulin 3.5 gm/dl (2.5-4.0); Potassium 5.2 mmol/L (3.5-5.1); Total Protein 7.1 gm/dl (6.4-8.2)
[2020-10-06 07:54] LABS: Estimated Average Glucose 171 mg/dl; Hemoglobin A1C 7.6 % (4.5-5.6)
[2020-10-06] MEDS: INSULIN ASPART 100 UNITS/ML 3 ML PEN SC SCH ×3 (08:07→17:07)
[2020-10-06] MEDS: ENOXAPARIN INJ 40 MG/0.4 ML SYR SQ SCH (08:08)
[2020-10-06] MEDS ORDERED: carvediloL 3.125 MG TAB PO SCH (09:00)
[2020-10-06] MEDS ORDERED: FUROSEMIDE 60 MG in SYRINGE 0 ML IV SCH (09:00)
--- NOTE | 2020-10-06 09:54 | Medical Student Progress Note ---
Date of Service October 06, 2020 Assessment & Plan (1) Acute heart failure: Plan: Dheeraj Kay is a 64-year-old male with past medical history significant for hypertension, hyperlipidemia, type 2 diabetes; who presented to the ED on 10/04 for generalized weakness, dyspnea, and acutely worsening abdominal pain along with abnormal outpatient laboratory studies. 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 Clinical history, physical exam, labs, imaging suggestive of acute systolic heart failure. Differential includes cardiomyopathy 2/2 HTN, HLD, T2DM, previous infarcts. This is most likely, although myocarditis, SD, CAD are also on the differential. -Cardiology consulted: appreciate recommendations. Patient started on carvedilol 3.125 mg PO BID and labetalol 20 mg IV q4h PRN for SBP > 130; once patient is stable, recommending dobutamine stress echo, Lexiscan, or possible cardiac cath (depending on renal function) -Poor urinary output with furosemide and bumetanide diuresis: 800 mL since 1800 on 10/05 -Given worsening BUN (75 from 53) and Cr (3.45 from 2.06), holding diuretics for now and considering dobutamine drip per Cardiology recommendation for management of low output heart failure -Monitor daily I/Os and weight checks -Trend electrolytes, renal function with CMP in AM Acute kidney injury: -Likely secondary to acute heart failure -Creatinine: 3.45 (uptrending from 2.06 on 10/05, 2.31 at admission); BUN: 75 (uptrending from 53 on 10/05, 52 at admission) -Poor urinary output: 700 mL after Rogers insertion at 1800 10/05, only 100 mL since then -Holding diuretics for now and considering dobutamine drip per Cardiology recommendation for management of low output heart failure to increase perfusion to kidneys and increase urinary output -Trend with CMP in AM Confusion: -Patient seeing things in his room that are not there, but it alert and oriented x 3. Possible etiologies include metabolic encephalopathy, delirium 2/2 to hospitalization, elevated ammonia; Ammonia level minimally elevated to 32.2 on 10/05, mentions history of recent ataxia; given recent confusion during exam, repeat ammonia level in AM -Continue to monitor; expecting improvement with treatment of medical illness Acute Liver Injury: -Likely secondary to acute heart failure due to hepatic congestion or liver hypoperfusion. Other etiologies were explored such as tickborne illness, portal vein thrombosis, hepatocellular carcinoma, viral illness, toxidrome, and acute pancreatitis; though these etiologies were less likely due to negative workup thus far with some labs still pending -AST: 1157 (downtrending from 1404 on 10/05, 2611 at admission), ALT: 1344 (downtrending from 1556 on 10/05, 1813 at admission), TBili: 9 (up from 2.2 on 10/05), DBili: 1.4 on 10/05, Cr: 3.75 (uptrending from 2.06 on 10/05, 2.31 at admission); improvement of LFTs is reassuring that the patients illness is most likely not primary hepatic in etiology -Continue trending with CMP in AM; we're expecting improvement with the t reatment of heart failure as the underlying cause Hyponatremia: -Na level of 135, stable from 10/05, likely secondary to acute heart failure resulting in fluid overload -Continue monitoring with CMP in AM Hyperkalemia: -K level of 5.2, likely secondary to acute renal failure and furosemide therapy -Continue monitoring with CMP in AM Thrombocytopenia: -Plts down to 104k from 272k on 10/05 -Presence of bleeding mucous membranes in the mouth, petechiae on the skin -Holding Lovenox due to possibility of medication-induced thrombocytopenia; DVT PPx currently with SCDs, will contact pharmacy to try substituting with fondaparinux -Another possible etiology include liver dysfunction, though not likely with a large acute drop in platelet count and improvement of other liver function tests -Higher risk of acute mesenteric ischemia with low platelets, suspected due to unremitting abdominal pain despite lack of BMs; ordered CT A/P w/o contrast to examine further -Continue to monitor with CBC in AM; will recheck INR Leukocytosis: -WBC 25.31 (uptrending from 17.50 on 10/05, 13.93 on 10/04) -Patient has been afebrile and has not been tachycardic; complains of abdominal and back pain -Possible etiology includes stress reaction from immense pain or urinary infection -U/A on 10/05: cloudy, 1+ protein, 1+ bacteria, WBC casts, 10-30 WBC, trace ketones, 5-10 hyaline cast, >30 epithelial cells, +mucus; Rogers draining clear urine in the room today -UCx pending -Continue to trend with CBC in AM; monitor symptoms Hypertension/Hyperlipidemia: -Holding home oral regimen at this time -Cardiology consult pending; will likely make recommendations about HTN management Type 2 diabetes: -Hold home oral glyburide/Metformin -Sliding scale insulin while in hospital -BSGs AC at bedtime Diet: DM2 Diet CODE STATUS: DNI DVT PPx: SCD (2) Acute liver disease: (3) Acute kidney injury: (4) Elevated troponin I level: (5) Abdominal pain: Abdominal location: right upper quadrant Qualified Code(s): R10.11 - Right upper quadrant pain Admission and Anticipated Discharge Date Admission Date: October 04, 2020 Supervising Attestation I was present for the history and physical exam obtained by the medical student JAMES Asher. I independently interviewed and examined the patient. I discussed the case with the MS4 and have read and edited her documentation as appropriate. -Cyndee Zimmerman, PGY1 FCM Subjective Overall, the patient says his pain is worse than yesterday - rating it "off the chart" when asked what his pain is from 0-10. He says his pain is "all over", but says it is most painful in his abdominal region, particularly in the right upper quadrant. He was given Fentanyl while conducting the interview and he is lying very still in bed. Of note, he makes note of seeing things that are not in the room, such as pumpkins in the corner.. Review of Systems Constitutional: + fatigue and + weakness; no fever and no chills Cardiovascular: + dyspnea at rest and + orthopnea Gastrointestinal: + abdominal pain Musculoskeletal: + back pain Neurologic: + confusion; no abnormal movements Physical Exam Constitutional: well developed, well nourished, + acute distress (mild), + ill appearing, + obese and + edematous Eyes: + scleral abnormality (slight icteric sclerae in R eye) ENMT: Mouth: + oral mucosal abnormality (dried blood on MM) Respiratory: normal respiratory effort Auscultation: + wheezes (inspiratory & expiratory, b/l); no crackles, no rales and no rhonchi Cardiovascular: Rate/Rhythm: regular rate and regular rhythm Heart Sounds: + murmur (systolic murmur - RUSB) Vessels: + JVD (equivocal on R side; difficult to appreciate due to body habitus/position) and normal peripheral pulses Extremities: + pedal edema (2+ b/l) Gastrointestinal (Abdomen): Inspection/Auscultation: + abdomen distended, + abdominal edema and + high-pitched sounds (all 4 quadrants); no abdominal wall ecchymosis, no visible peristalsis, caput medusae absent and Mead-Sr sign absent Percussion/Palpation: + abdomen tender, abdomen soft and + ascites (Trace); abdomen not rigid and no fluid wave Musculoskeletal: Extremities: + petechiae (present on the back) and + lower leg abnormality (?bug & tick bites) Neurologic: + confused Psychiatric: Orientation: alert and oriented x 3 Results & Data ([facility]) Vital Signs (Past 12 Hours) Vital Signs Temp Pulse Pulse Resp BP Pulse Ox Pulse Ox 10/06/20 07:42 36.2 C L 87 18 143/87 H 95 10/06/20 03:50 159/107 H 10/06/20 03:46 36.4 C L 93 H 20 176/111 H 98 10/06/20 01:32 98 10/06/20 01:31 94 H 10/05/20 23:27 35.7 C L 89 28 H 161/120 H 98 Laboratory Results Laboratory Results WBC 25.31 K/uL (4.8-10.8) H 10/06/20 05:50 RBC 5.90 M/uL (4.7-6.1) 10/06/20 05:50 Hgb 17.5 g/dL (14.0-18.0) 10/06/20 05:50 Hct 51.9 % (42-52) 10/06/20 05:50 MCV 88.0 fL (80-100) 10/06/20 05:50 MCH 29.7 pg (25-34) 10/06/20 05:50 MCHC 33.7 g/dL (32-36) 10/06/20 05:50 RDW Std Deviation 55.3 fL (36.4-46.3) H 10/06/20 05:50 RDW Coeff of Dwight 17.6 % (11.5-14.5) H 10/06/20 05:50 Plt Count 104 K/uL (130-400) L D 10/06/20 05:50 MPV 12.2 fL (7.4-10.4) H 10/05/20 08:27 Immature Gran % (Auto) 0.5 % 10/06/20 05:50 Neut % (Auto) 86.4 % 10/06/20 05:50 Lymph % (Auto) 7.6 % 10/06/20 05:50 [place] % (Auto) 5.4 % 10/06/20 05:50 Eos % (Auto) 0.0 % 10/06/20 05:50 Baso % (Auto) 0.1 % 10/06/20 05:50 Neut # (Auto) 21.88 K/uL (1.4-6.5) H 10/06/20 05:50 Lymph # (Auto) 1.92 K/uL (1.2-3.4) 10/06/20 05:50 [place] # (Auto) 1.37 K/uL (0.11-0.59) H 10/06/20 05:50 Eos # (Auto) 0.00 K/uL (0-0.5) 10/06/20 05:50 Baso # (Auto) 0.02 K/uL (0-0.2) 10/06/20 05:50 Immature Gran # (Auto) 0.12 K/uL (0.00-0.02) H 10/06/20 05:50 Absolute Nucleated RBC 0.13 K/uL (0-0) H 10/06/20 05:50 Nucleated RBC % (auto) 0.5 % 10/06/20 05:50 PT 15.9 Seconds (9.0-12.0) H 10/04/20 Unknown INR 1.6 (0.9-1.1) H 10/04/20 Unknown APTT 30.3 Seconds (21.0-31.0) 10/04/20 Unknown PTT Ratio 1.2 10/04/20 Unknown Sodium 135 mmol/L (136-145) L 10/06/20 05:50 Potassium 5.2 mmol/L (3.5-5.1) H 10/06/20 05:50 Chloride 101 mmol/L (98-107) 10/06/20 05:50 Carbon Dioxide 21 mmol/L (21-32) 10/06/20 05:50 Anion Gap 13.0 (3-11) H 10/06/20 05:50 BUN 75 mg/dl (7-18) H 10/06/20 05:50 Creatinine 3.45 mg/dl (0.6-1.4) H D 10/06/20 05:50 Est Cr Clr Drug Dosing 28.2 ml/min 10/06/20 05:50 Est GFR ( Amer) 20.8 ml/min 10/06/20 05:50 Est GFR (Non-Af Amer) 18.0 ml/min 10/06/20 05:50 BUN/Creatinine Ratio 21.6 (10-20) H 10/06/20 05:50 Glucose 174 mg/dl (70-99) H 10/06/20 05:50 POC Glucose 170 mg/dl (70-99) H 10/06/20 07:15 Estimat Average Glucose 171 mg/dl 10/06/20 05:50 Hemoglobin A1c 7.6 % (4.5-5.6) H 10/06/20 05:50 Lactate 2.5 mmol/L (0.4-2.0) H* 10/04/20 Unknown Calcium 9.3 mg/dl (8.5-10.1) 10/06/20 05:50 Magnesium 2.0 mg/dl (1.8-2.4) 10/06/20 05:50 Total Bilirubin 9.0 mg/dl (0.2-1) H D 10/06/20 05:50 Direct Bilirubin 1.4 mg/dl (0-0.2) H 10/04/20 Unknown AST 1157 U/L (15-37) H 10/06/20 05:50 ALT 1344 U/L (12-78) H 10/06/20 05:50 Alkaline Phosphatase 26 U/L (45-117) L 10/06/20 05:50 Ammonia 32.2 umol/L (11-32) H 10/04/20 Unknown Troponin I 0.925 ng/ml (0-0.045) H* 10/05/20 13:18 NT-Pro-B Natriuret Pep 74789 pg/ml (0-900) H 10/05/20 08:27 Total Protein 7.1 gm/dl (6.4-8.2) 10/06/20 05:50 Albumin 3.6 gm/dl (3.4-5.0) 10/06/20 05:50 Globulin 3.5 gm/dl (2.5-4.0) 10/06/20 05:50 Albumin/Globulin Ratio 1.0 (0.9-2) 10/06/20 05:50 Lipase 523 U/L (73-393) H 10/04/20 Unknown Specimen Hemolysis 10/06/20 05:50 Urine Color Dark Yellow 10/05/20 05:45 Urine Appearance Cloudy (Clear) A 10/05/20 05:45 Urine pH 5.0 (4.5-7.5) 10/05/20 05:45 Ur Specific [place] 1.017 (1.000-1.030) 10/05/20 05:45 Urine Protein 1+ (Negative) H 10/05/20 05:45 Urine Glucose (UA) Negative (Negative) 10/05/20 05:45 Urine Ketones Trace (Negative) H 10/05/20 05:45 Urine Blood Negative (Negative) 10/05/20 05:45 Urine Nitrite Negative (Negative) 10/05/20 05:45 Urine Bilirubin Negative (Negative) 10/05/20 05:45 Urine Urobilinogen Negative (Negative) 10/05/20 05:45 Ur Leukocyte Esterase Negative (Negative) 10/05/20 05:45 Urine WBC (Auto) 10-30 /hpf (0-5) H 10/05/20 05:45 Urine RBC (Auto) 0-4 /hpf (0-4) 10/05/20 05:45 U Hyaline Cast (Auto) 5-10 /lpf (0-5) H 10/05/20 05:45 U Epithel Cells (Auto) >30 /lpf (0-5) H 10/05/20 05:45 Urine Bacteria (Auto) 1+ (Negative) H 10/05/20 05:45 Ur Renal Epithelial Cell Not Reportable 10/05/20 05:45 WBC Casts 5-10 /lpf (0) H 10/05/20 05:45 Urine Mucus Present (None Prsent) A 10/05/20 05:45 Ur Butalbital Confirm Cancelled 10/05/20 05:45 Urine Opiates Screen Cancelled 10/05/20 05:45 Urine Opiates Screen Neg (Neg) 10/05/20 05:45 U Codeine Confrm GC/MS Cancelled 10/05/20 05:45 Ur Morphine (GC/MS) Cancelled 10/05/20 05:45 Ur Hydrocodone (GC/MS) Cancelled 10/05/20 05:45 U Norhydrocodone Conf Cancelled 10/05/20 05:45 Ur Oxycodone Screen Cancelled 10/05/20 05:45 U Noroxycodone Confirm Cancelled 10/05/20 05:45 Ur Oxycodone GC/MS Cancelled 10/05/20 05:45 U Oxymorphone GC/MS Cancelled 10/05/20 05:45 EDDP Confirm Cancelled 10/05/20 05:45 Ur Methadone, Qual Cancelled 10/05/20 05:45 Ur Methadone, Qual Neg (Neg) 10/05/20 05:45 Ur Methadone Cancelled 10/05/20 05:45 Ur Hydromorphone (GC/MS) Cancelled 10/05/20 05:45 Acetaminophen ug/ml (10-30) 10/04/20 22:14 Urine Barbiturates Cancelled 10/05/20 05:45 Urine Barbiturates Neg (Neg) 10/05/20 05:45 Ur Phencyclidine Scrn Cancelled 10/05/20 05:45 Ur Phencyclidine (PCP) Neg (Neg) 10/05/20 05:45 Urine PCP Confirm Cancelled 10/05/20 05:45 Ur Amphetamines Screen Cancelled 10/05/20 05:45 U Amphetamines Confirm Cancelled 10/05/20 05:45 U Amphetamin/Meth Scrn Neg (Neg) 10/05/20 05:45 Methamphetamine GC/MS Cancelled 10/05/20 05:45 MDMA (Ecstasy) Screen Pos (Neg) H 10/05/20 05:45 Ur Amobarbital GC/MS Cancelled 10/05/20 05:45 U Pentobarbital GC/MS Cancelled 10/05/20 05:45 U Phenobarbital GC/MS Cancelled 10/05/20 05:45 U Secobarbital GC/MS Cancelled 10/05/20 05:45 U [id number] GC/MS Cancelled 10/05/20 05:45 U Benzodiazepines Scrn Cancelled 10/05/20 05:45 U Benzodiazepines Scrn Neg (Neg) 10/05/20 05:45 U 7-Aminoclonazepam Screen Cancelled 10/05/20 05:45 Ur Nordiazepam GC/MS Cancelled 10/05/20 05:45 U OH-ethylfluraz GC/MS Cancelled 10/05/20 05:45 U Lorazepam Cnf GC/MS Cancelled 10/05/20 05:45 U Oxazepam Confm GC/MS Cancelled 10/05/20 05:45 Ur Temazepam Cnf GC/MS Cancelled 10/05/20 05:45 U a-Hydroxytriaz GC/MS Cancelled 10/05/20 05:45 U [id number] Cancelled 10/05/20 05:45 Urine Cocaine Cancelled 10/05/20 05:45 Ur Cocaine Metabolite Neg (Neg) 10/05/20 05:45 U Cocaine Metab Confirm Cancelled 10/05/20 05:45 Tetrahydrocannabinol Cancelled 10/05/20 05:45 U Marijuana (THC) Screen Cancelled 10/05/20 05:45 U Marijuana (THC) Screen Neg (Neg) 10/05/20 05:45 Drug Screen Comment Cancelled 10/05/20 05:45 Anaplasma Smear Cancelled 10/04/20 Unknown Anaplasma Smear See Comment 10/04/20 Unknown Lyme Disease IgG Ab Negative (Negative) 10/04/20 21:16 Lyme Disease IgM Ab Negative (Negative) 10/04/20 21:16 COVID-19 Eval Order Covid19 at [facility] 10/04/20 22:44 SARS-CoV-2 (PCR) NEGATIVE (Negative) 10/04/20 22:44 Hep Bs Antigen Neg (Neg) 10/04/20 21:12 Hepatitis C Antibody Neg (Neg) 10/04/20 21:12 Reference Lab Cancelled 10/05/20 05:45 Impressions Abdomen/Pelvis CT 10/04/20 19:[address] WITHOUT CONTRAST CT DOSE: 993.06 mGy.cm HISTORY: Acute generalized abdominal pain pain TECHNIQUE: Multiaxial CT images of the abdomen and pelvis were performed without contrast. A dose lowering technique was utilized adhering to the principles of ALARA. COMPARISON STUDY: Chest radiograph of same day, MRI lumbar spine 08/08/2011 FINDINGS: Cardiomegaly. Trace pericardial effusion. Coronary artery calcifications. Trace left and small right pleural effusions. Lung bases are generally clear. No pneumatosis or pneumoperitoneum. Unremarkable spleen, moderately atrophic pancreas, adrenal glands and gallbladder. Suggested mild hepatic steatosis. Trace abdominal pelvic ascites. 2.4 cm hypodense lesion suggestive of a probable cyst involves the inferior pole left kidney. Bilateral renal vascular calcifications with symmetric perinephric stranding. No hydronephrosis. Urinary bladder wall thickening. Mild prostamegaly. Extensive calcified plaque of the abdominal aorta and branch vessels. No adenopathy. No bowel obstruction or bowel wall thickening. Mild colonic diverticulosis. Normal appendix. Contrast opacified loops of small bowel within the pelvis. Tiny fat filled umbilical hernia. Generalized body wall edema. Degenerative changes of the spine, pelvis and hips. IMPRESSION: 1. Cardiomegaly with small right and trace left pleural effusions. 2. Trace abdominal pelvic ascites with body wall edema. 3. No bowel obstruction or bowel wall thickening. 4. Colonic diverticulosis. 5. Mild urinary bladder wall thickening. Correlate with urinalysis to exclude cystitis. ACT 112: Negative or not required by law. The above report was generated using voice recognition software. It may contain grammatical, syntax or spelling errors. Electronically signed by: Gino Briceno M.D. 10/04/2020 8:57 PM Chest X-Ray 10/04/20 19:54 XR chest 1V portable HISTORY: 64 years-old Male SOB acute shortness of breath COMPARISON: None TECHNIQUE: AP and lateral views of the chest FINDINGS: Cardiac silhouette is moderately enlarged. Mild pulmonary vascular congestion. No pneumothorax, large pleural effusion or overt pulmonary edema. No lobar airspace. Azygos fissure. Calcified plaque of the thoracic aorta. Degenerative changes of the shoulders and spine. IMPRESSION: Cardiomegaly with pulmonary vascular congestion. ACT 112: Negative or not required by law. The above report was generated using voice recognition software. It may contain grammatical, syntax or spelling errors. Electronically signed by: Gino Briceno M.D. 10/04/2020 8:34 PM Portal Vein US 10/04/20 22:55 US duplex portal hepatic veins CLINICAL HISTORY: 64 years-old Male presenting with acute liver injury. TECHNIQUE: Real-time grayscale ultrasound imaging of the upper abdomen was performed for a focused evaluation at the site of clinical concern. COMPARISON: None. FINDINGS: Liver is normal in size measuring 15.5 cm and show mild diffuse increase in echogenicity and coarsening of echotexture which could be seen in hepatic steatosis. No thrombus visualized within splenic, portal and hepatic veins. Hepatopedal flow. IMPRESSION: 1. Hepatic steatosis. No evidence of thrombosis. Hepatopedal flow. ACT 112: Negative or not required by law. Electronically signed by: Ese Blanco DO 10/05/2020 8:54 AM Medications Administered Current Inpatient Medications Al Hydrox/Mg Hydrox/Simethicone (Aluminum/Magnesium Susp 30 Ml Udc) 15 ml PO Q4H PRN PRN Reason: Dyspepsia Stop: 11/04/20 01:31 Carvedilol (Carvedilol 3.125 Mg Tab) 3.125 mg PO BID [facility] Stop: 11/05/20 08:59 Last Admin: 10/06/20 08:18 Dose: 3.125 mg Documented by: Dextrose (Dextrose 50% 50 Ml Syringe) 25 - 50 ml IV UD PRN; Protocol PRN Reason: Hypoglycemia Protocol Stop: 11/04/20 05:11 Enoxaparin Sodium (Enoxaparin Inj 40 Mg/0.4 Ml Syr) 40 mg SQ QAM PATTI Stop: 11/04/20 11:44 Last Admin: 10/06/20 08:08 Dose: 40 mg Documented by: Fentanyl Citrate (Fentanyl Citrate 100 Mcg/2 Ml Vial) 50 mcg IV Q30M PRN PRN Reason: abdominal pain Stop: 10/19/20 23:58 Last Admin: 10/06/20 08:04 Dose: 50 mcg Documented by: Glucagon (Glucagon For Inj 1 Mg Vial) 1 mg SQ UD PRN; Protocol PRN Reason: Hypoglycemia Protocol Stop: 11/04/20 05:11 Glucose (Glucose 10 Tabs/Tube) 4 - 8 tabs PO UD PRN; Protocol PRN Reason: Hypoglycemia Protocol Stop: 11/04/20 05:11 Glucose (Glucose 40% Gel 15 Gm Tube) 15 - 30 gm PO UD PRN; Protocol PRN Reason: Hypoglycemia Protocol Stop: 11/04/20 05:11 Insulin Aspart (Insulin Aspart 100 Units/Ml 3 Ml Pen) 0 units SC ACHS PATTI Stop: 11/04/20 07:29 Last Admin: 10/06/20 08:07 Dose: 1 units Documented by: Labetalol HCl (Labetalol Hcl Iv 5 Mg/Ml 20ml) 20 mg IV Q4H PRN PRN Reason: SBP GREATER THAN 130 Stop: 11/04/20 18:50 Magnesium Hydroxide (Magnesium Hydroxide Susp 30 Ml Udc) 30 ml PO Q12H PRN PRN Reason: Constipation Stop: 11/04/20 01:31 Miscellaneous (Carbohydrates For Hypoglycemia ) 15 - 30 gm PO UD PRN PRN Reason: Hypoglycemia Protocol Stop: 11/04/20 05:11 Morphine Sulfate (Morphine Sulfate 2 Mg/Ml Carp) 2 mg IV Q30M PRN PRN Reason: Chest Pain Stop: 10/19/20 01:31 Nitroglycerin (Nitroglycerin Sl 0.4 Mg/Tab Tab) 0.4 mg SL UD PRN PRN Reason: Chest Pain Stop: 11/04/20 01:31 Ondansetron HCl (Ondansetron Inj 2 Mg/Ml 2 Ml Vial) 4 mg IV Q6H PRN PRN Reason: Nausea Stop: 11/04/20 01:31 Last Admin: 10/05/20 02:25 Dose: 4 mg Documented by:
--- NOTE | 2020-10-06 12:26 | CT Scan Report ---
ABDOMEN AND PELVIS CT WITHOUT CONTRAST CT DOSE: 672.63 mGy.cm HISTORY: Acute generalized abdominal pain Unremitting abdominal pain TECHNIQUE: Multiaxial CT images of the abdomen and pelvis were performed without contrast. A dose lo wering technique was utilized adhering to the principles of ALARA. COMPARISON STUDY: 10/04/2020 FINDINGS: Cardiomegaly with extensive coronary artery calcifications and trace pericardial effusion. Small left and small moderate right pleural effusions, increased in size from comparison. Minimal subsegmental bibasilar atelectasis. Study is limited by respiratory motion artifact and lack of IV contrast. No pn eumatosis or pneumoperitoneum. The unenhanced spleen and adrenal glands are unremarkable. Increased a ttenuation of the gallbladder may represent gallbladder sludge. Unremarkable liver. Small volume of a bdominal pelvic ascites with body wall edema has progressed from comparison. There is mild peripancre atic and mesenteric edema. Perinephric stranding is unchanged from comparison. 2.4 cm hypodensities suggestive of a cyst is agai n noted involving the inferior pole left kidney. Bilateral renal vascular calcifications. Rogers lexi ter present within a decompressed urinary bladder which demonstrates wall thickening with perivesicul ar stranding. The bladder lumen is likely secondary to instrumentation. Extensive calcified plaque of the aorta. No adenopathy. No bowel obstruction or bowel wall thickening. Mild colonic diverticulosis. Enteric cont rast is noted within the cecum. The appendix appears noninflamed. Degenerative changes of the spine, pelvis and hips. IMPRESSION: 1. Cardiomegaly with fluid overload. Increased size of the pleural effusions with small volume of abd ominopelvic ascites and anasarca. 2. Edema/fluid within the lesser sac is likely secondary to fluid overload. Correlation should be mad e with pancreatic enzymes to exclude pancreatitis. 3. No bowel obstruction or bowel wall thickening. 4. Additional findings as above. ACT 112: Negative or not required by law. The above report was generated using voice recognition software. It may contain grammatical, syntax o r spelling errors. Electronically signed by: Gino Briceno M.D. 10/06/2020 12:24 PM
--- NOTE | 2020-10-06 12:34 | Cardiology Progress Note ---
Date of Service October 06, 2020 Assessment & Plan (1) Abdominal pain: Plan: Etiology seems much less likely to be liver capsular swelling/hepatic congestion from acute on chronic systolic heart failure, given his increasing pain despite attempts at diuresis, his increasing leukocytosis, and his decreasing liver enzymes in the face of increasing pain. Also, he is able to lie flat and has no dyspnea and is not demonstrating evidence of progressive or severe heart fa ilure, which would be expected to occur concurrently if hepatic congestion were worsening. Repeat noncontrast abdominal/pelvic CT suggest possibility of gallbladder and/or pancreatic disease. Ischemic bowel is a consideration but no bowel thickening seen on CT. Recommend surgical evaluation given the severity of his abdominal discomfort. (2) Acute on chronic HFrEF (heart failure with reduced ejection fraction): Plan: Agree with further attempts at afterload reduction with carvedilol. Avoiding JOHNSON inhibitor/ARB with renal dysfunction. Hold on diuresis given acute elevation of creatinine/worsening renal function. Continue IV labetalol for acute BP lowering. Will attempt limited follow-up echocardiogram to reassess LV function (may be difficult given patient's abdominal pain and limited cooperation during study yesterday). (3) Ischemic cardiomyopathy: Plan: Reassess LV function if possible. (4) Acute kidney injury: Plan: Holding diuretics. Admission and Anticipated Discharge Date Admission Date: October 04, 2020 Subjective Patient complains of continued severe abdominal discomfort which he did not localize. He was lying quietly on his right side and did not appear distressed, however upon attempting to gently palpate his abdomen he cried out in pain. He denies any chest pain, dyspnea, or palpitations. He is receiving narcotic analgesics for his pain. Physical Exam Physical Exam: Patient appears uncomfortable but not severely distressed, he was lying on his right side attempting to remain still (any movement caused pain in his abdomen). Blood pressure normotensive to moderately hypertensive. Pulse generally in the 80s and regular with ectopy. Skin: no ecchymoses or generalized lesions. HEENT: unremarkable. Neck: Jugular venous not able to be assessed (he was lying flat), not obviously elevated. Lungs: Mildly decreased breath sounds but generally clear. No obvious wheezes or crackles. Cardiac: regular rhythm, less frequent ectopy currently, normal S1, intact aortic closure sound, 3/6 apical holosystolic murmur rating to the axilla, no diastolic murmur. Abdomen: Severe abdominal tenderness, given his initial marked reaction to attem pts at palpation did not attempt to localize his pain. Extremities: 1+ pretibial edema, peripheral pulses intact. Neurologic: Reticent affect (due to pain), answers simple questions appropriately but he was noted to be confused earlier, grossly nonfocal. Results & Data ([facility]) Vital Signs (Past 12 Hours) Vital Signs Temp Pulse Pulse Resp BP Pulse Ox Pulse Ox 10/06/20 11:49 97.3 F L 76 19 110/73 96 10/06/20 07:42 97.2 F L 87 18 143/87 H 95 10/06/20 03:50 159/107 H 10/06/20 03:46 97.5 F L 93 H 20 176/111 H 98 10/06/20 01:32 98 10/06/20 01:31 94 H Laboratory Results WBC increased from 17.5 to 25.31 overnight. Hemoglobin increased from 15.8 to 17.5. Platelet count decreased from 272,000 to 104,000. Sodium 135, potassium 5.2, chloride 101, CO2 21, BUN 75, creatinine 3.45 (up from 2.06). AST declined from 1404 to 1157, ALT declined from 1556 to 1344. Diagnostic Findings Repeat CT of the abdomen/pelvis without contrast showed increased pleural effusions and some abdominopelvic ascites, there was fluid near the pancreas and possible gallbladder sludge. No bowel obstruction or bowel wall thickening PG Care Time/CCT Total # of Minutes Spent Total Time Spent with Patient: Total time spent is greater than 50% in coordination of care (as documented) at patient's floor/unit and/or counseling patient: Coding Level of Care Code 86181 Subseq Hosp Care Lvl 3 Diagnoses Abdominal pain R10.11 Abdominal location: right upper quadrant Acute on chronic HFrEF (heart failure with reduced ejection fraction) I50.23 Ischemic cardiomyopathy I25.5 Acute kidney injury N17.9 (1) Abdominal pain Abdominal location: right upper quadrant Qualified Code(s): R10.11 - Right upper quadrant pain
--- NOTE | 2020-10-06 12:46 | Surgery Consultation ---
Date of Consultation October 06, 2020 Assessment & Plan (1) Abdominal pain: This is a 64yM with a PMH of DM2, HTN, HLD who presented to the [facility] ED on 10/04/20 with generalized weakness, abdominal pain, and abnormal outpatient labs. We were consulted today for evaluation/rule out of mesenteric ischemia as patient has been complaining of progressive severe abdominal pain. Today a stat repeat CT scan was performed that revealed "cardiomegaly with fluid overload. Increased size of the pleural effusions with small volume of abdominopelvic ascites and anasarca. Edema/fluid within the lesser sac is likely secondary to fluid overload." Patient's labs reviewed and he has a WBC 25, elevated K: 5.2, Cr: 3.4, Trop: 0.9. LFT's are elevated Tb: 9, AST: 1157, ALT: 1344. CT scan findings were reviewed with radiology who reported the biliary system is decompressed and concern for fluid overload likely related to cardiac status. Cardiology has been following patient, echo revealed EF 25-30%. He is being managed for acute on chronic heart failure. On examination patient was initially tender to palpation in the R side of abdomen, after some distraction was less tender on exam. His abdomen is soft with mild distention, + fluid wave. At this time we will back patient down to NPO with IVF. No current evidence of cholangitis or mesenteric ischemia. We will add a lipase onto his labs for evaluation of pancreatitis. ?Consideration to possible primary peritonitis if no improvement, and could consider a paracentesis should patient not improve. No plans for acute surgical intervention at this time. Patient seen/examined with Dr. Mesa. History of Present Illness Attending Physician: Heidi Dutton MD History of Present Illness This is a 64yM with a PMH of DM2, HTN, HLD who presented to the [facility] ED on 10/04/20 with generalized weakness, abdominal pain, and abnormal outpatient labs. We were consulted today for evaluation/rule out of mesenteric ischemia as patient has been complaining of progressive severe abdominal pain. On arrival patient's CT scan on 10/04 showed no acute intra-abdominal process. Today a repeat CT scan was performed that revealed "cardiomegaly with fluid overload. Increased size of the pleural effusions with small volume of abdominopelvic ascites and anasarca. Edema/fluid within the lesser sac is likely secondary to fluid overload." On exam patient is confused, but he denies any nausea/vomiting. He voices that his abdominal pain has been intermittent. Allergies Allergy/AdvReac Type Severity Reaction Status Date / Time Penicillins Allergy Severe Swelling Verified 10/04/20 22:52 of Lip/Tongue/Throat Home Medications Medication Instructions Recorded Confirmed Type aspirin 81 mg tablet,delayed 81 mg PO QAM 10/04/20 10/04/20 History release (Aspirin Low Dose) bupropion HCl 300 mg 24 hr tablet, 300 mg PO QAM 10/04/20 10/04/20 History extended release cyanocobalamin (vitamin B-12) 1,000 mcg PO QAM 10/04/20 10/04/20 History 1,000 mcg tablet (Vitamin B-12) fenofibrate 160 mg tablet 160 mg PO 10/04/20 10/04/20 History glyburide 5 mg-metformin 500 mg 1 tab PO QAM 10/04/20 10/04/20 History tablet insulin detemir U-100 100 unit/mL 40 unit SUBCUT QA 10/04/20 10/04/20 History (3 mL) subcutaneous pen (Levemir FlexTouch U-100 Insulin) lisinopril 10 1 tab PO QA 10/04/20 10/04/20 History mg-hydrochlorothiazide 12.5 mg tablet pravastatin 40 mg tablet 40 mg PO QPM 10/04/20 10/04/20 History torsemide 20 mg tablet 20 mg PO QAM 10/04/20 10/04/20 History trazodone 100 mg tablet 50 mg PO 10/04/20 10/04/20 History Patient History Medical History Basal cell carcinoma Diabetes High cholesterol Hypertension Pneumonia (~07/2020) Social History Smoking Status: Former smoker Second Hand Exposure: No; Do You Dip or Chew Tobacco: No; Hx Alcohol Use: Yes Alcohol type: beer and hard liquor Alcohol Intake Frequency: Monthly or Less Hx Substance Use: No Preferred Language: Ethiopian Communication Ability: Effective Solar Energy Specialist Required: No Beliefs That Will Affect Care: None Current Living Situation: Spouse Feels Safe at Home: Yes Safety Concerns: Feels Safe At This Time Assistive Devices: Cane and Glasses Review of Systems Constitutional: no fever Gastrointestinal: + abdominal pain (severe intermittent); no nausea and no vomiting Physical Exam Physical Exam: arousable; somewhat confused Gastrointestinal (Abdomen): Inspection/Auscultation: + abdomen distended (mild) Percussion/Palpation: + abdomen tender (some ttp elicited in the R side of abdomen), abdomen soft and + fluid wave; no guarding Results & Data ([facility]) Vital Signs (Past 12 Hours) Vital Signs Temp Pulse Pulse Resp BP Pulse Ox Pulse Ox 10/06/20 11:49 36.3 C L 76 19 110/73 96 10/06/20 08:00 88 10/06/20 07:42 36.2 C L 87 18 143/87 H 95 10/06/20 03:50 159/107 H 10/06/20 03:46 36.4 C L 93 H 20 176/111 H 98 10/06/20 01:32 98 10/06/20 01:31 94 [address] ABDOMEN AND PELVIS CT WITHOUT CONTRAST CT DOSE: 672.63 mGy.cm HISTORY: Acute generalized abdominal pain Unremitting abdominal pain TECHNIQUE: Multiaxial CT images of the abdomen and pelvis were performed without contrast. A dose lowering technique was utilized adhering to the principles of ALARA. COMPARISON STUDY: 10/04/2020 FINDINGS: Cardiomegaly with extensive coronary artery calcifications and trace pericardial effusion. Small left and small moderate right pleural effusions, increased in size from comparison. Minimal subsegmental bibasilar atelectasis. Study is limited by respiratory motion artifact and lack of IV contrast. No pneumatosis or pneumoperitoneum. The unenhanced spleen and adrenal glands are unremarkable. Increased attenuation of the gallbladder may represent gallbladder sludge. Unremarkable liver. Small volume of abdominal pelvic ascites with body wall edema has progressed from comparison. There is mild peripancreatic and mesenteric edema. Perinephric stranding is unchanged from comparison. 2.4 cm hypodensities suggestive of a cyst is again noted involving the inferior pole left kidney. Bilateral renal vascular calcifications. Rogers catheter present within a decompressed urinary bladder which demonstrates wall thickening with perivesicular stranding. The bladder lumen is likely secondary to instrumentation. Extensive calcified plaque of the aorta. No adenopathy. No bowel obstruction or bowel wall thickening. Mild colonic diverticulosis. Enteric contrast is noted within the cecum. The appendix appears noninflamed. Degenerative changes of the spine, pelvis and hips. IMPRESSION: 1. Cardiomegaly with fluid overload. Increased size of the pleural effusions with small volume of abdominopelvic ascites and anasarca. 2. Edema/fluid within the lesser sac is likely secondary to fluid overload. Correlation should be made with pancreatic enzymes to exclude pancreatitis. 3. No bowel obstruction or bowel wall thickening. 4. Additional findings as above. ACT 112: Negative or not required by law. The above report was generated using voice recognition software. It may contain grammatical, syntax or spelling errors. Electronically signed by: Gino Briceno M.D. 10/06/2020 12:24 PM PG Care Time/CCT Total # of Minutes Spent Total Time Spent with Patient: Total time spent is greater than 50% in coordination of care (as documented) at patient's floor/unit and/or counseling patient: Coding Level of Care Code 79799 Inpt Consult Level 2 Diagnoses Abdominal pain R10.11 Abdominal location: right upper quadrant (1) Abdominal pain Abdominal location: right upper quadrant Qualified Code(s): R10.11 - Right upper quadrant pain
[2020-10-06 13:02] LABS: Albumin Globulin Ratio 0.9 (0.9-2); Albumin Level 3.2 gm/dl (3.4-5.0); BUN Creatinine Ratio 19.6 (10-20); Bilirubin,Total 13.2 mg/dl (0.2-1); Calcium 8.8 mg/dl (8.5-10.1); Creatinine Clr Calc Pharmacy 23.6 ml/min; Est GFR (African American) 16.8 ml/min; Est GFR (Non-African American) 14.5 ml/min; Globulin 3.4 gm/dl (2.5-4.0); Total Protein 6.6 gm/dl (6.4-8.2)
[2020-10-06 13:43] LABS: INR 2.4 (0.9-1.1); Prothrombin Time 22.7 Seconds (9.0-12.0)
[2020-10-06 13:48] LABS: Basophils # (auto) 0.02 K/uL (0-0.2); Basophils % (auto) 0.1 %; Hemoglobin 16.2 g/dL (14.0-18.0); Immature Granulocytes # (auto) 0.26 K/uL (0.00-0.02); Immature Granulocytes % (auto) 0.8 %; Lymphocytes # (auto) 1.79 K/uL (1.2-3.4); Lymphocytes % (auto) 5.4 %; Mean Corpuscular Hemoglobin 29.7 pg (25-34); Mean Corpuscular Hgb Conc 33.8 g/dL (32-36); Mean Corpuscular Volume 87.9 fL (80-100); Monocytes % (auto) 7.3 %; Neutrophils # (auto) 28.55 K/uL (1.4-6.5); Neutrophils % (auto) 86.4 %; Nucleated RBC # (auto) 0.42 K/uL (0-0); Nucleated RBC % (auto) 1.3 %; Platelet Count 46 K/uL (130-400); RDW Standard Deviation 54.8 fL (36.4-46.3); Red Blood Count 5.46 M/uL (4.7-6.1); White Blood Count 33.02 K/uL (4.8-10.8)
[2020-10-06 13:51] LABS: BUN Creatinine Ratio 18.3 (10-20); Calcium 8.8 mg/dl (8.5-10.1); Creatinine Clr Calc Pharmacy 23.2 ml/min; Est GFR (African American) 16.4 ml/min; Est GFR (Non-African American) 14.2 ml/min; Potassium 6.6 mmol/L (3.5-5.1)
--- NOTE | 2020-10-06 13:54 | XCELERA ---
[id number] \\[id number]
[2020-10-06] MEDS ORDERED: STAT IV Infusion **Titration per Protocol STA ×2 (13:59→14:15)
[2020-10-06] MEDS ORDERED: [UNRECOGNIZED DRUG - REMARK] IV SCH (14:15)
[2020-10-06] MEDS ORDERED: DEXTROSE 50% 50 ML SYRINGE IV STA (14:15)
[2020-10-06] MEDS ORDERED: INSULIN HUMAN REGULAR PER UNIT 10 UNITS in SYRINGE 9.9 ML IV STA (14:19)
[2020-10-06] MEDS ORDERED: CALCIUM GLUCONATE 10% 1,000 MG in SODIUM CHLORIDE 0.9% 50 ML IV ONE (14:20)
[2020-10-06] MEDS ORDERED: CALCIUM GLUCONATE 10% 1,000 MG in SODIUM CHLORIDE 0.9% 50 ML IV STA (14:28)
[2020-10-06] MEDS ORDERED: LACTULOSE SYRUP 20 GM/30 ML UDC PO ONE (14:45)
--- NOTE | 2020-10-06 15:14 | Communication Note ---
Date of Service: October 06, 2020 [place] [address] Medical Student Progress NoteISigned Patient: Farzana TENORIO Date: 10/04/20#: [id number] Phy: Heidi Dutton [facility] ID: [id number] Phy: Sangita Nguyen MDBirth Date: 1955Fa Phy: Age: 64Location: 2SSex: MRoom/Bed: E2171 cc: ~ *NOTICE TO RECEIVING [employer]/AGENCY This information is strictly Confidential and protected under [place] law. [place] law prohibits you from making any further disclosure of this information unless further disclosure is expressly permitted by the written consent of the person to whom it pertains or is authorized by law. A general authorization for the release of medical or other information is not sufficient for this purpose. Hospital accepts no responsibility if the information is made available to any other person, INCLUDING THE PATIENT. [id number] (Blank) Addendum October 06, 2020 12:09 Resident Activity Tracking Resident Involvement: Resident Care Provided Care Provided: [facility] Medicine Addendum Signed By:<Electronically signed by Cyndee Zimmerman MD>10/06/20ddendum Cosigned By:Created: 10/06/20 Date of Service October 06, 2020 Acute heart failure: Dheeraj Kay is a 64-year-old male with past medical history significant for hypertension, hyperlipidemia, type 2 diabetes; who presented to the ED on 10/04 for generalized weakness, dyspnea, and acutely worsening abdominal pain along with abnormal outpatient laboratory studies. Acute systolic heart failure: -Patient presents with orthopnea, ascites, b/l LE edema, pulmonary congestion, dyspnea on exertion; PE findings of b/l pitting edema, systolic heart murmur, and congestion/wheezing on lung auscultation; Previous history as noted from EKG: evidence of old inferior infarct and old anterolateral infarct; Lab findings include elevated serial troponin (1->0.9->1.5) and elevated BNP; Echo: EF of 25-30% with repeat limited Echo with 10-15% EF, mod-severe LV systolic dysfunction, lateral and interior wall akinesis, mild-mod global hypokinesis of LV, moderate LA dilation, calcified aortic valve, RV not well visualized. Clinical history, physical exam, labs, imaging suggestive of acute systolic heart failure. Differential includes cardiomyopathy 2/2 HTN, HLD, T2DM, previous infarcts. This is most likely, although myocarditis, OR, CAD are also on the differential. -Cardiology consulted: appreciate recommendations. Patient started on started on Dobutamine drip and transferred to the ICU after repeat ECHO was obtained -Poor urinary output with furosemide and bumetanide diuresis: 800 mL since 1800 on 10/05 -Given worsening BUN (75 from 53) and Cr (3.45 from 2.06), holding diuretics for now and considering dobutamine drip per Cardiology recommendation for management of low output heart failure -Trend electrolytes, renal function with CMP in AM -Lactate 2.5 on admission uptrended 8 Acute kidney injury: -Likely secondary to acute heart failure -Creatinine: 4.2 ( 2.31 at admission); potassium level 6.6 -Poor urinary output: 700 mL after Rogers insertion at 1800 10/05, only 100 mL since then -Holding diuretics for now and considering dobutamine drip per Cardiology recommendation for management of low output heart failure to increase perfusion to kidneys and increase urinary output -nephrology consulted for ARF and consideration for HD given rapidly uptrending potassium and worsening cr. Acute Liver Injury: -Likely secondary to acute heart failure due to hepatic congestion or liver hypoperfusion. Other etiologies were explored such as tickborne illness, portal vein thrombosis, hepatocellular carcinoma, viral illness, toxidrome, and acute pancreatitis; though these etiologies were less likely due to negative workup thus far with some labs still pending -AST: 1157 (downtrending from 1404 on 10/05, 2611 at admission), ALT: 1344 (downtrending from 1556 on 10/05, 1813 at admission), TBili: 9 (up from 2.2 on 10/05), DBili: 1.4 on 10/05, Cr: 3.75 (uptrending from 2.06 on 10/05, 2.31 at admission); improvement of LFTs is reassuring that the patients illness is most likely not primary hepatic in etiology -Continue trending with CMP in AM; we're expecting improvement with the t reatment of heart failure as the underlying cause Confusion: -Patient seeing things in his room that are not there, but it alert and oriented x 3. Possible etiologies include metabolic encephalopathy, delirium 2/2 to hospitalization, elevated ammonia; Ammonia level minimally elevated to 32.2 on 10/05, mentions history of recent ataxia; given recent confusion during exam, r epeat ammonia level in AM -Continue to monitor; expecting improvement with treatment of medical illness Hyponatremia: -Na level of 135, stable from 10/05, likely secondary to acute heart failure resulting in fluid overload -Continue monitoring with CMP in AM Hyperkalemia: -K level of 5.2, likely secondary to acute renal failure and furosemide therapy -Continue monitoring with CMP in AM Thrombocytopenia: -Plts down to 104k from 272k on 10/05 -Presence of bleeding mucous membranes in the mouth, petechiae on the skin -Holding Lovenox due to possibility of medication-induced thrombocytopenia; DVT PPx currently with SCDs, will contact pharmacy to try substituting with fondaparinux -Another possible etiology include liver dysfunction, though not likely with a large acute drop in platelet count and improvement of other liver function tests -Higher risk of acute mesenteric ischemia with low platelets, suspected due to unremitting abdominal pain despite lack of BMs; ordered CT A/P w/o contrast to examine further -Continue to monitor with CBC in AM; will recheck INR - SCD's for DVT prophylaxis Leukocytosis: -WBC 33 (uptrending from 17.50 on 10/05, 13.93 on 10/04) -Patient has been afebrile and has not been tachycardic; complains of abdominal and back pain -Possible etiology includes stress reaction from immense pain or bacteremia 2/2 translocation -U/A on 10/05: cloudy, 1+ protein, 1+ bacteria, WBC casts, 10-30 WBC, trace ketones, 5-10 hyaline cast, >30 epithelial cells, +mucus; Rogers draining clear urine in the room today -UCx w/ skin debby -Continue to trend with CBC in AM; monitor symptoms -blood cultures and fungal cultures obtained -started on Vancomycin and Ertapenem Hypertension/Hyperlipidemia: -Holding home oral regimen at this time Type 2 diabetes: -Hold home oral glyburide/Metformin -Sliding scale insulin while in hospital -BSGs AC at bedtime Diet: DM2 Diet CODE STATUS: DNI DVT PPx: SCD Dispo: transfer to tertiary care center for consideration of LVAD
--- NOTE | 2020-10-06 15:30 | XRay Report ---
XR chest 1V portable CLINICAL HISTORY: Line placement COMPARISON STUDY: Chest radiograph October 04, 2020. FINDINGS: There is no pneumothorax following placement of a left-sided internal jugular central line. Catheter tip projects over the proximal left brachiocephalic vein. There are small bilateral pleural fusions. Note is made of cardiomegaly. There is pulmonary vascular congestion with suspected mild pu lmonary edema. Incidental note is made of an azygos fissure. IMPRESSION: 1. No pneumothorax following placement of a left internal jugular central line. Catheter tip projects over the proximal left brachiocephalic vein. 2. Cardiomegaly with small bilateral pleural effusions and mild pulmonary edema. ACT 112: Negative or not required by law. Electronically signed by: Jesús Jackson M.D. 10/06/2020 3:29 PM
[2020-10-06] MEDS ORDERED: VANCOMYCIN CONSULT ACTIVE PRN (16:01)
--- NOTE | 2020-10-06 16:09 | Procedure Note ---
Procedure Note Date of Service October 06, 2020 Note Procedure date: Noted above Procedure: Central venous access and temporary HD access Pre-procedure indication: Need for vasoactive medication administration, need for possible hemodialysis Post-procedure Diagnosis: same as above Prior to Procedure: Informed Consent: The risks, benefits, indications, potential complications, and alternatives were explained to the patient and verbal informed consent obtained. Acuity of situation took precedence to proceed with vascular access Attending Staff: Jorje Ramirez DO Resident/APC: Not applicable Skin Prep: Chlorhexidine Anesthesia: 4 mL 1% lidocaine without epinephrine The identity of the patient was confirmed and a bedside time out was performed. Description of Procedure: After sterile prep and sterile drape utilizing standard sterile technique the superficial skin of the left internal jugular area was anesthetized. The target vessel was identified and entered with an 18- gauge needle. Dark venous blood return was noted. A guidewire was inserted through the needle and into the vessel. The needle was withdrawn and a skin james was made. A tissue dilator was advanced via Seldinger technique and removed. A double lumen catheter was inserted via Seldinger technique and the guidewire removed. All ports jose a and flushed easily. A Biopatch was placed, and the catheter was secured via nylon suture. A sterile dressing was then applied. Complications: None Estimated blood loss: Trace Patient tolerated the procedure well. Procedure Date: Noted Above Procedure: Procedural Ultrasound Indication: Central venous access Attending: Jorje Ramirez DO Resident/Physician Machine Bobbin Winder: Not applicable Artery visualized: Yes Vein visualized: Yes Compressible Vein: Yes Vein patent: Yes Guidewire or Short Catheter seen in vein prior to dilation: Yes Line confirmed in Vein with ultrasound: Yes Lung Sliding on side of attempt (if applicable): NA If no lung sliding or not obtained has CXR been ordered: Yes Impression: Successful central venous access placement Images obtained are saved for permanent record Coding CPT Codes Tubes, Drains, and Vasc Access - Tubes, Drains, and Vasc Access: [id number] Insertion Of Non-tunneled Catheter Age 7 Yrs> ([id number]) Tubes, Drains, and Vasc Access - Tubes, Drains, and Vasc Access: [id number] Ultrasound Guidance For Vascular ([id number]) [facility] [place] Procedure Codes (Charges) Tubes, Drains, and Vasc Access Procedure 1: Tubes, Drains, and Vasc Access: [id number] Insertion Of Non-tunneled Catheter Age 7 Yrs> Procedure 2: Tubes, Drains, and Vasc Access: [id number] Ultrasound Guidance For Vascular
--- NOTE | 2020-10-06 16:11 | Procedure Note ---
Procedure Note Date of Service October 06, 2020 Note Procedure date: Noted above Procedure: Radial artery cannulation Pre-procedure Diagnosis: Need for invasive monitoring, hypotension/frequent blood draws Post-procedure Diagnosis: same as above Prior to Procedure: Informed Consent: The risks, benefits, indications, potential complications, and alternatives were explained to the patient and informed consent obtained. Attending Staff: Jorje Ramirez DO Skin Prep: Chlorhexidine Anesthesia: 3 mL 1% lidocaine without epinephrine The identity of the patient was confirmed and a bedside time out was performed. Description of Procedure: After sterile prep and sterile drape utilizing st andard sterile technique the superficial skin of the right radial artery was anesthetized. The target artery was identified via dynamic ultrasound guidance and entered with a 20-gauge arrow Angiocath. Guidewire was unable to be passed into several successful introductions into the radial artery. Patient had adequate perfusion to the right hand and further attempts into the right arm were discontinued. Complications: None Estimated blood loss: Trace Patient tolerated the procedure well. Coding CPT Codes Tubes, Drains, and Vasc Access - Tubes, Drains, and Vasc Access: [id number] Place Catheter In Artery ([id number]) [facility] [place] Procedure Codes (Charges) Tubes, Drains, and Vasc Access Procedure 1: Tubes, Drains, and Vasc Access: [id number] Place Catheter In Artery (Aborted procedure)
--- NOTE | 2020-10-06 16:13 | Procedure Note ---
Procedure Note Date of Service October 06, 2020 Note Procedure date: Noted above Procedure: Femoral artery cannulation Pre-procedure Diagnosis: Need for invasive monitoring, hypotension/frequent blood draws Post-procedure Diagnosis: same as above Prior to Procedure: Informed Consent: The risks, benefits, indications, potential complications, and alternatives were explained to the patient and informed consent obtained. Attending Staff: Jorje Ramirez DO Skin Prep: Chlorhexidine Anesthesia: 3 mL 1% lidocaine without epinephrine The identity of the patient was confirmed and a bedside time out was performed. Description of Procedure: After sterile prep and sterile drape utilizing s tandard sterile technique the superficial skin of the right femoral artery was anesthetized. The target artery was identified via dynamic ultrasound guidance and entered with a 20-gauge arrow Angiocath. Pulsatile bright red blood return was noted. Via modified Seldinger technique the self-contained guidewire was advanced and the Angiocath advanced over the guidewire. The guidewire was removed and brisk arterial blood return was noted. The pressure monitor was connected, and the arterial line was secured via silk suture. A sterile dressing was then applied. Complications: None Estimated blood loss: Trace Patient tolerated the procedure well. Procedure Date: October 06, 2020 Procedure: Procedural Ultrasound Indication: Arterial access for invasive monitoring Attending: Jorje Ramirez DO Artery visualized: Yes Pulsatility of artery: Yes Artery patent: Yes Line confirmed in artery with ultrasound: Yes Impression: Successful arterial cannulation Images obtained are saved for permanent record Coding CPT Codes Tubes, Drains, and Vasc Access - Tubes, Drains, and Vasc Access: [id number] Place Catheter In Artery ([id number]) Tubes, Drains, and Vasc Access - Tubes, Drains, and Vasc Access: [id number] Ultrasound Guidance For Vascular ([id number]) [facility] [place] [facility] [place] Codes (Charges) Tubes, Drains, and Vasc Access Procedure 1: Tubes, Drains, and Vasc Access: [id number] Place Catheter In Artery Procedure 2: Tubes, Drains, and Vasc Access: [id number] Ultrasound Guidance For Vascular
--- NOTE | 2020-10-06 16:21 | Critical Care Consultation ---
Date of Consultation October 06, 2020 Assessment & Plan (1) MODS (multiple organ dysfunction syndrome): Reason Critically Ill: 64-year-old male with multisystem organ dysfunction PLAN: Resp: Tachypnea -Saturating well supplemental oxygen as needed CV: Cardiomyopathy/cardiogenic shock -On dobutamine increasing blood pressure -Ischemic versus takosubo versus myocarditis Fluids/Renal: Acute kidney injury -Temporary dialysis catheter placed and had central venous access Hyperkalemia -1 g calcium gluconate, 25 g dextrose, 10 units regular insulin, given 1 dose lactulose -Lactulose versus Kayexalate secondary to hypotension and abdominal pain consideration given to possibly inducing nonocclusive bowel ischemia -Giving 1 amp of bicarb for hyperkalemia attempting to the limits IV fluids Metabolic acidosis: High gap -50 M EQ 8.4% bicarb x1 ID: Load with vancomycin 20 mg/kg and Zosyn 4.5 mg -Coverage for intra-abdominal pathology, blood cultures and fungal culture ordered -Anaplasmosis Ethan-Sloan CMV and Lyme titers pending as well as hepatitis antibodies GI/Nutrition: Acute liver failure: Congestive hepatopathy versus iatrogenic liver failure versus anaplasmosis -Ordering N-acetylcysteine loading dose: 150 mg/kg to infuse over 1 hour Question pancreatitis -Elevated lipase Abdominal pain -Questionable mesenteric ischemia and pre-existing vascular disease and low flow state Heme: Supratherapeutic INR -Suspect congestive hepatopathy DVT prophylaxis: Chemoprophylaxis contraindicated Endocrine: ICU hyperglycemia protocol Diabetes -Elevated blood sugar Vascular access: Left internal jugular temporary HD catheter with CVC access, right femoral arterial line Code Status: Conditional code Disposition: Transfer to tertiary care (2) Acute heart failure: (3) Acute liver disease: (4) Hepatitis: (5) Acute kidney injury: (6) Elevated troponin I level: (7) Abdominal pain: Supervising Physician Co-Signing Physician Notes I have personally spent 45 minutes of critical care time in the direct management of this patient. This is a life/limb threatening event. This includes time spent evaluating patient, direct bedside care, chart review, placing orders, interpretation of diagnostic studies, discussion with consu ltants, patient, and/or family members regarding treatment decisions, as well as other required patient management activities. This time is exclusive of all separately billable procedures, and teaching time and separate from and in addition to any other critical care service time. History of Present Illness Reason for Consultation: Shock Requesting Physician: Heidi Dutton MD Attending Physician: Heidi Dutton MD History of Present Illness Patient is a 64-year-old male with no reported significant past medical history who presented to the emergency department with generalized weakness after being seen by his primary care provider and told he had several lab abnormalities. Over last 24 hours he has had increasing abdominal pain and has a history of elevated troponins with elevated LFTs. He had a echocardiogram obtained and repeated which demonstrated worsening cardiomyopathy with an EF of 15 to 20% with severely reduced left ventricular systolic function. He has also had worsening liver function tests as well as worsening acute kidney injury with associated hyperkalemia and elevated white blood cell count of 33,000. Patient was initially hypertensive today and has had worsening cardiac function and became relatively hypotensive and was transferred to the ICU for further stabilization. Ultimately they are working on transfer to tertiary care: [facility]. Allergies Allergy/AdvReac Type Severity Reaction Status Date / Time Penicillins Allergy Severe Swelling Verified 10/04/20 22:52 of Lip/Tongue/Throat Home Medications Medication Instructions Recorded Confirmed Type aspirin 81 mg tablet,delayed 81 mg PO [facility] 10/04/20 10/04/20 History release (Aspirin Low Dose) bupropion HCl 300 mg 24 hr tablet, 300 mg PO QA 10/04/20 10/04/20 History extended release cyanocobalamin (vitamin B-12) 1,000 mcg PO QAM 10/04/20 10/04/20 History 1,000 mcg tablet (Vitamin B-12) fenofibrate 160 mg tablet 160 mg PO HS 10/04/20 10/04/20 History glyburide 5 mg-metformin 500 mg 1 tab PO QAM 10/04/20 10/04/20 History tablet insulin detemir U-100 100 unit/mL 40 unit SUBCUT [facility] 10/04/20 10/04/20 History (3 mL) subcutaneous pen (Levemir FlexTouch U-100 Insulin) lisinopril 10 1 tab PO QAM 10/04/20 10/04/20 History mg-hydrochlorothiazide 12.5 mg tablet pravastatin 40 mg tablet 40 mg PO QPM 10/04/20 10/04/20 History torsemide 20 mg tablet 20 mg PO QAM 10/04/20 10/04/20 History trazodone 100 mg tablet 50 mg PO HS 10/04/20 10/04/20 History Patient History Medical History Basal cell carcinoma Diabetes High cholesterol Hypertension Pneumonia (~07/2020) Social History Smoking Status: Former smoker Second Hand Exposure: No; Do You Dip or Chew Tobacco: No; Hx Alcohol Use: Yes Alcohol type: beer and hard liquor Alcohol Intake Frequency: Monthly or Less Hx Substance Use: No Preferred Language: Estonian Communication Ability: Effective [employer] Supervisor Required: No Beliefs That Will Affect Care: None Current Living Situation: Spouse Feels Safe at Home: Yes Safety Concerns: Feels Safe At This Time Assistive Devices: Cane and Glasses Review of Systems Review of Systems: Abdominal pain Physical Exam Physical Exam: General: Arouses to voice. Uncomfortable. Skin: Cool, dry, Head: Atraumatic Ears, nose, mouth and throat: airway patent Cardiovascular: Normal peripheral perfusion Respiratory: mild tachypnea Gastrointestinal: Tenderness out of proportion to exam Musculoskeletal: No deformity Results & Data Results & Data ([facility]) Vital Signs (Past 12 Hours) Vital Signs Temp Pulse Pulse Resp BP BP Pulse Ox 10/06/20 13:59 77 98/67 L 94 10/06/20 11:49 36.3 C L 76 19 110/73 96 10/06/20 08:00 88 10/06/20 07:42 36.2 C L 87 18 143/87 H 95 Laboratory Results 10/06/20 10/06/20 10/06/20 Range/Units 16:09 16:09 15:24 WBC (4.8-10.8) K/uL RBC (4.7-6.1) M/uL Hgb (14.0-18.0) g/dL Hct (42-52) % MCV (80-100) fL MCH (25-34) pg MCHC (32-36) g/dL RDW Std Deviation (36.4-46.3) fL RDW Coeff of Dwight (11.5-14.5) % Plt Count (130-400) K/uL Immature Gran % (Auto) % Neut % (Auto) % Lymph % (Auto) % [place] % (Auto) % Eos % (Auto) % Baso % (Auto) % Neut # (Auto) (1.4-6.5) K/uL Lymph # (Auto) (1.2-3.4) K/uL [place] # (Auto) (0.11-0.59) K/uL Eos # (Auto) (0-0.5) K/uL Baso # (Auto) (0-0.2) K/uL Immature Gran # (Auto) (0.00-0.02) K/uL Absolute Nucleated RBC (0-0) K/uL Nucleated RBC % (auto) % PT (9.0-12.0) Seconds INR (0.9-1.1) Sodium (136-145) mmol/L Potassium Pending (3.5-5.1) mmol/L Chloride (98-107) mmol/L Carbon Dioxide (21-32) mmol/L Anion Gap (3-11) BUN (7-18) mg/dl Creatinine (0.6-1.4) mg/dl Est Cr Clr Drug Dosing ml/min Est GFR ( Amer) ml/min Est GFR (Non-Af Amer) ml/min BUN/Creatinine Ratio (10-20) Glucose (70-99) mg/dl POC Glucose 169 H (70-99) mg/dl Estimat Average Glucose mg/dl Hemoglobin A1c (4.5-5.6) % Lactate Pending (0.4-2.0) mmol/L Calcium (8.5-10.1) mg/dl Magnesium (1.8-2.4) mg/dl Total Bilirubin (0.2-1) mg/dl AST (15-37) U/L ALT (12-78) U/L Alkaline Phosphatase (45-117) U/L Troponin I (0-0.045) ng/ml Total Protein (6.4-8.2) gm/dl Albumin (3.4-5.0) gm/dl Globulin (2.5-4.0) gm/dl Albumin/Globulin Ratio (0.9-2) Amylase (25-115) U/L Lipase (73-393) U/L Specimen Hemolysis 10/06/20 10/06/20 10/06/20 Range/Units 14:28 14:14 13:13 WBC (4.8-10.8) K/uL RBC (4.7-6.1) M/uL Hgb (14.0-18.0) g/dL Hct (42-52) % MCV (80-100) fL MCH (25-34) pg MCHC (32-36) g/dL RDW Std Deviation (36.4-46.3) fL RDW Coeff of Dwight (11.5-14.5) % Plt Count (130-400) K/uL Immature Gran % (Auto) % Neut % (Auto) % Lymph % (Auto) % [place] % (Auto) % Eos % (Auto) % Baso % (Auto) % Neut # (Auto) (1.4-6.5) K/uL Lymph # (Auto) (1.2-3.4) K/uL [place] # (Auto) (0.11-0.59) K/uL Eos # (Auto) (0-0.5) K/uL Baso # (Auto) (0-0.2) K/uL Immature Gran # (Auto) (0.00-0.02) K/uL Absolute Nucleated RBC (0-0) K/uL Nucleated RBC % (auto) % PT 22.7 H (9.0-12.0) Seconds INR 2.4 H (0.9-1.1) Sodium (136-145) mmol/L Potassium (3.5-5.1) mmol/L Chloride (98-107) mmol/L Carbon Dioxide (21-32) mmol/L Anion Gap (3-11) BUN (7-18) mg/dl Creatinine (0.6-1.4) mg/dl Est Cr Clr Drug Dosing ml/min Est GFR ( Amer) ml/min Est GFR (Non-Af Amer) ml/min BUN/Creatinine Ratio (10-20) Glucose (70-99) mg/dl POC Glucose 116 H (70-99) mg/dl Estimat Average Glucose mg/dl Hemoglobin A1c (4.5-5.6) % Lactate (0.4-2.0) mmol/L Calcium (8.5-10.1) mg/dl Magnesium (1.8-2.4) mg/dl Total Bilirubin (0.2-1) mg/dl AST (15-37) U/L ALT (12-78) U/L Alkaline Phosphatase (45-117) U/L Troponin I 1.540 H* (0-0.045) ng/ml Total Protein (6.4-8.2) gm/dl Albumin (3.4-5.0) gm/dl Globulin (2.5-4.0) gm/dl Albumin/Globulin Ratio (0.9-2) Amylase (25-115) U/L Lipase (73-393) U/L Specimen Hemolysis 10/06/20 10/06/20 10/06/20 Range/Units 13:13 13:13 13:13 WBC 33.02 H* (4.8-10.8) K/uL RBC 5.46 (4.7-6.1) M/uL Hgb 16.2 (14.0-18.0) g/dL Hct 48.0 (42-52) % MCV 87.9 (80-100) fL MCH 29.7 (25-34) pg MCHC 33.8 (32-36) g/dL RDW Std Deviation 54.8 H (36.4-46.3) fL RDW Coeff of Dwight 18.0 H (11.5-14.5) % Plt Count 46 L D (130-400) K/uL Immature Gran % (Auto) 0.8 % Neut % (Auto) 86.4 % Lymph % (Auto) 5.4 % [place] % (Auto) 7.3 % Eos % (Auto) 0.0 % Baso % (Auto) 0.1 % Neut # (Auto) 28.55 H (1.4-6.5) K/uL Lymph # (Auto) 1.79 (1.2-3.4) K/uL [place] # (Auto) 2.40 H (0.11-0.59) K/uL Eos # (Auto) 0.00 (0-0.5) K/uL Baso # (Auto) 0.02 (0-0.2) K/uL Immature Gran # (Auto) 0.26 H (0.00-0.02) K/uL Absolute Nucleated RBC 0.42 H (0-0) K/uL Nucleated RBC % (auto) 1.3 % PT (9.0-12.0) Seconds INR (0.9-1.1) Sodium 133 L (136-145) mmol/L Potassium 6.6 H* D (3.5-5.1) mmol/L Chloride 102 (98-107) mmol/L Carbon Dioxide 16 L (21-32) mmol/L Anion Gap 16.0 H (3-11) BUN 77 H (7-18) mg/dl Creatinine 4.20 H (0.6-1.4) mg/dl Est Cr Clr Drug Dosing 23.2 ml/min Est GFR ( Amer) 16.4 ml/min Est GFR (Non-Af Amer) 14.2 ml/min BUN/Creatinine Ratio 18.3 (10-20) Glucose 128 H (70-99) mg/dl POC Glucose (70-99) mg/dl Estimat Average Glucose mg/dl Hemoglobin A1c (4.5-5.6) % Lactate 8.0 H* (0.4-2.0) mmol/L Calcium 8.8 (8.5-10.1) mg/dl Magnesium (1.8-2.4) mg/dl Total Bilirubin (0.2-1) mg/dl AST 1472 H (15-37) U/L ALT (12-78) U/L Alkaline Phosphatase (45-117) U/L Troponin I (0-0.045) ng/ml Total Protein (6.4-8.2) gm/dl Albumin (3.4-5.0) gm/dl Globulin (2.5-4.0) gm/dl Albumin/Globulin Ratio (0.9-2) Amylase 212 H (25-115) U/L Lipase (73-393) U/L Specimen Hemolysis 10/06/20 10/06/20 10/06/20 Range/Units 12:16 12:16 11:26 WBC (4.8-10.8) K/uL RBC (4.7-6.1) M/uL Hgb (14.0-18.0) g/dL Hct (42-52) % MCV (80-100) fL MCH (25-34) pg MCHC (32-36) g/dL RDW Std Deviation (36.4-46.3) fL RDW Coeff of Dwight (11.5-14.5) % Plt Count (130-400) K/uL Immature Gran % (Auto) % Neut % (Auto) % Lymph % (Auto) % [place] % (Auto) % Eos % (Auto) % Baso % (Auto) % Neut # (Auto) (1.4-6.5) K/uL Lymph # (Auto) (1.2-3.4) K/uL [place] # (Auto) (0.11-0.59) K/uL Eos # (Auto) (0-0.5) K/uL Baso # (Auto) (0-0.2) K/uL Immature Gran # (Auto) (0.00-0.02) K/uL Absolute Nucleated RBC (0-0) K/uL Nucleated RBC % (auto) % PT (9.0-12.0) Seconds INR (0.9-1.1) Sodium 133 L (136-145) mmol/L Potassium (3.5-5.1) mmol/L Chloride 102 (98-107) mmol/L Carbon Dioxide 18 L (21-32) mmol/L Anion Gap 13.0 H (3-11) BUN 81 H (7-18) mg/dl Creatinine 4.12 H D (0.6-1.4) mg/dl Est Cr Clr Drug Dosing 23.6 ml/min Est GFR ( Amer) 16.8 ml/min Est GFR (Non-Af Amer) 14.5 ml/min BUN/Creatinine Ratio 19.6 (10-20) Glucose 144 H (70-99) mg/dl POC Glucose 139 H (70-99) mg/dl Estimat Average Glucose mg/dl Hemoglobin A1c (4.5-5.6) % Lactate (0.4-2.0) mmol/L Calcium 8.8 (8.5-10.1) mg/dl Magnesium (1.8-2.4) mg/dl Total Bilirubin 13.2 H (0.2-1) mg/dl AST (15-37) U/L ALT 1282 H (12-78) U/L Alkaline Phosphatase 27 L (45-117) U/L Troponin I (0-0.045) ng/ml Total Protein 6.6 (6.4-8.2) gm/dl Albumin 3.2 L (3.4-5.0) gm/dl Globulin 3.4 (2.5-4.0) gm/dl Albumin/Globulin Ratio 0.9 (0.9-2) Amylase (25-115) U/L Lipase 2979 H (73-393) U/L Specimen Hemolysis 10/06/20 10/06/20 10/06/20 Range/Units 07:15 05:50 05:50 WBC (4.8-10.8) K/uL RBC (4.7-6.1) M/uL Hgb (14.0-18.0) g/dL Hct (42-52) % MCV (80-100) fL MCH (25-34) pg MCHC (32-36) g/dL RDW Std Deviation (36.4-46.3) fL RDW Coeff of Dwight (11.5-14.5) % Plt Count (130-400) K/uL Immature Gran % (Auto) % Neut % (Auto) % Lymph % (Auto) % [place] % (Auto) % Eos % (Auto) % Baso % (Auto) % Neut # (Auto) (1.4-6.5) K/uL Lymph # (Auto) (1.2-3.4) K/uL [place] # (Auto) (0.11-0.59) K/uL Eos # (Auto) (0-0.5) K/uL Baso # (Auto) (0-0.2) K/uL Immature Gran # (Auto) (0.00-0.02) K/uL Absolute Nucleated RBC (0-0) K/uL Nucleated RBC % (auto) % PT (9.0-12.0) Seconds INR (0.9-1.1) Sodium 135 L (136-145) mmol/L Potassium 5.2 H (3.5-5.1) mmol/L Chloride 101 (98-107) mmol/L Carbon Dioxide 21 (21-32) mmol/L Anion Gap 13.0 H (3-11) BUN 75 H (7-18) mg/dl Creatinine 3.45 H D (0.6-1.4) mg/dl Est Cr Clr Drug Dosing 28.2 ml/min Est GFR ( Amer) 20.8 ml/min Est GFR (Non-Af Amer) 18.0 ml/min BUN/Creatinine Ratio 21.6 H (10-20) Glucose 174 H (70-99) mg/dl POC Glucose 170 H (70-99) mg/dl Estimat Average Glucose 171 mg/dl Hemoglobin A1c 7.6 H (4.5-5.6) % Lactate (0.4-2.0) mmol/L Calcium 9.3 (8.5-10.1) mg/dl Magnesium 2.0 (1.8-2.4) mg/dl Total Bilirubin 9.0 H D (0.2-1) mg/dl AST 1157 H (15-37) U/L ALT 1344 H (12-78) U/L Alkaline Phosphatase 26 L (45-117) U/L Troponin I (0-0.045) ng/ml Total Protein 7.1 (6.4-8.2) gm/dl Albumin 3.6 (3.4-5.0) gm/dl Globulin 3.5 (2.5-4.0) gm/dl Albumin/Globulin Ratio 1.0 (0.9-2) Amylase (25-115) U/L Lipase (73-393) U/L Specimen Hemolysis 10/06/20 10/05/20 10/05/20 Range/Units 05:50 20:35 16:20 WBC 25.31 H (4.8-10.8) K/uL RBC 5.90 (4.7-6.1) M/uL Hgb 17.5 (14.0-18.0) g/dL Hct 51.9 (42-52) % MCV 88.0 (80-100) fL MCH 29.7 (25-34) pg MCHC 33.7 (32-36) g/dL RDW Std Deviation 55.3 H (36.4-46.3) fL RDW Coeff of Dwight 17.6 H (11.5-14.5) % Plt Count 104 L D (130-400) K/uL Immature Gran % (Auto) 0.5 % Neut % (Auto) 86.4 % Lymph % (Auto) 7.6 % [place] % (Auto) 5.4 % Eos % (Auto) 0.0 % Baso % (Auto) 0.1 % Neut # (Auto) 21.88 H (1.4-6.5) K/uL Lymph # (Auto) 1.92 (1.2-3.4) K/uL [place] # (Auto) 1.37 H (0.11-0.59) K/uL Eos # (Auto) 0.00 (0-0.5) K/uL Baso # (Auto) 0.02 (0-0.2) K/uL Immature Gran # (Auto) 0.12 H (0.00-0.02) K/uL Absolute Nucleated RBC 0.13 H (0-0) K/uL Nucleated RBC % (auto) 0.5 % PT (9.0-12.0) Seconds INR (0.9-1.1) Sodium (136-145) mmol/L Potassium (3.5-5.1) mmol/L Chloride (98-107) mmol/L Carbon Dioxide (21-32) mmol/L Anion Gap (3-11) BUN (7-18) mg/dl Creatinine (0.6-1.4) mg/dl Est Cr Clr Drug Dosing ml/min Est GFR ( Amer) ml/min Est GFR (Non-Af Amer) ml/min BUN/Creatinine Ratio (10-20) Glucose (70-99) mg/dl POC Glucose 180 H 175 H (70-99) mg/dl Estimat Average Glucose mg/dl Hemoglobin A1c (4.5-5.6) % Lactate (0.4-2.0) mmol/L Calcium (8.5-10.1) mg/dl Magnesium (1.8-2.4) mg/dl Total Bilirubin (0.2-1) mg/dl AST (15-37) U/L ALT (12-78) U/L Alkaline Phosphatase (45-117) U/L Troponin I (0-0.045) ng/ml Total Protein (6.4-8.2) gm/dl Albumin (3.4-5.0) gm/dl Globulin (2.5-4.0) gm/dl Albumin/Globulin Ratio (0.9-2) Amylase (25-115) U/L Lipase (73-393) U/L Specimen Hemolysis Diagnostic Findings US duplex portal hepatic veins CLINICAL HISTORY: 64 years-old Male presenting with acute liver injury. TECHNIQUE: Real-time grayscale ultrasound imaging of the upper abdomen was performed for a focused evaluation at the site of clinical concern. COMPARISON: None. FINDINGS: Liver is normal in size measuring 15.5 cm and show mild diffuse increase in echogenicity and coarsening of echotexture which could be seen in hepatic s teatosis. No thrombus visualized within splenic, portal and hepatic veins. Hepatopedal flow. IMPRESSION: 1. Hepatic steatosis. No evidence of thrombosis. Hepatopedal flow. ABDOMEN AND PELVIS CT WITHOUT CONTRAST CT DOSE: 672.63 mGy.cm HISTORY: Acute generalized abdominal pain Unremitting abdominal pain TECHNIQUE: Multiaxial CT images of the abdomen and pelvis were performed without contrast. A dose lowering technique was utilized adhering to the principles of ALARA. COMPARISON STUDY: 10/04/2020 FINDINGS: Cardiomegaly with extensive coronary artery calcifications and trace pericardial effusion. Small left and small moderate right pleural effusions, increased in size from comparison. Minimal subsegmental bibasilar atelectasis. Study is limited by respiratory motion artifact and lack of IV contrast. No pneumatosis or pneumoperitoneum. The unenhanced spleen and adrenal glands are unremarkable. Increased attenuation of the gallbladder may represent gallbladder sludge. Unremarkable liver. Small volume of abdominal pelvic ascites with body wall edema has progressed from comparison. There is mild peripancreatic and mesenteric edema. Perinephric stranding is unchanged from comparison. 2.4 cm hypodensities suggestive of a cyst is again noted involving the inferior pole left kidney. Bilateral renal vascular calcifications. Rogers catheter present within a decompressed urinary bladder which demonstrates wall thickening with perivesicular stranding. The bladder lumen is likely secondary to instrumentation. Extensive calcified plaque of the aorta. No adenopathy. No bowel obstruction or bowel wall thickening. Mild colonic diverticulosis. Enteric contrast is noted within the cecum. The appendix appears noninflamed. Degenerative changes of the spine, pelvis and hips. IMPRESSION: 1. Cardiomegaly with fluid overload. Increased size of the pleural effusions with small volume of abdominopelvic ascites and anasarca. 2. Edema/fluid within the lesser sac is likely secondary to fluid overload. Correlation should be made with pancreatic enzymes to exclude pancreatitis. 3. No bowel obstruction or bowel wall thickening. 4. Additional findings as above. Coding Level of Care Code Critical Care 1st 30-74 mins Diagnoses Acute heart failure I50.9 Acute liver disease K76.9 Hepatitis K75.9 Acute kidney injury N17.9 MODS (multiple organ dysfunction syndrome) Elevated troponin I level R77.8 Abdominal pain R10.11 Abdominal location: right upper quadrant Time Spent (min) 45 (1) Abdominal pain Abdominal location: right upper quadrant Qualified Code(s): R10.11 - Right upper quadrant pain
[2020-10-06] MEDS ORDERED: SODIUM BICARB 8.4% INJ 50 MEQ/50 ML SYR IV STA (16:25)
[2020-10-06] MEDS ORDERED: CONSULT PHARMACY STA (16:26)
[2020-10-06] MEDS ORDERED: SODIUM BICARB 8.4% INJ 50 MEQ/50 ML SYR IV ONE (16:26)
[2020-10-06] MEDS ORDERED: VANCOMYCIN HCL 2,250 MG in SODIUM CHLORIDE 0.9% 500 ML IV ONE (16:30)
[2020-10-06 16:34] LABS: Potassium 5.2 mmol/L (3.5-5.1)
[2020-10-06] MEDS ORDERED: AcetylCYSTEINE 15,000 MG in DEXTROSE 5% 200 ML IV ONE (16:45)
--- NOTE | 2020-10-06 16:48 | Discharge Summary ---
Date of Service October 06, 2020 Admission HPI Per Admitting Provider Dheeraj Kay is a 64-year-old male with past medical history significant for hypertension, hyperlipidemia, type 2 diabetes; who presents for generalized weakness associated with abdominal pain and outpatient abnormal laboratory studies. This is worsened over the course of last several days, with this weekend being worse. Laboratory evaluation by his PCP demonstrated abnormal LFTs, as well as abnormal creatinine. For this reason he was sent for further evaluation. Continues to have an upper abdominal pain that is intermittent at times, and not alleviated or improved with repositioning. Is associated with s mall amount of nausea, but no vomiting. No changes to bowel movements over this time. Has had a decreased appetite in the setting of this nausea. He does have numerous bug bites and tick bites over his lower extremities, after working in the yard for this last several days prior to this. None of these were concerning to him at first, however given the extent of his fatigue and weakness this became a new concern. Has not been tested for tickborne illnesses Does not drink alcohol, does not utilize recreational drugs. No recent exposures to other illnesses. No known history with viral hepatitis, or cirrhosis; does not know if he was vaccinated against hepatitis A. Admission Exam Per Admitting Provider Constitutional: WD/WN, vitals as above Eyes: PERRL, conjunctivae normal, anicteric sclerae Respiratory: normal respiratory effort, lungs clear to auscultation Auscultation: no crackles, no rales, no rhonchi and no wheezes Cardiovascular: Rate/Rhythm: regular rate and regular rhythm Heart Sounds: no gallop, no murmur and no cardiac rub Vessels: normal peripheral pulses; no JVD Extremities: no edema Gastrointestinal (Abdomen): Inspection/Auscultation: + abdomen distended and + abdominal edema; no abdominal wall ecchymosis and no visible peristalsis Percussion/Palpation: + abdomen tender, + guarding, abdomen soft, + ascites (Trace) and + tympanic to percussion; abdomen not rigid Skin: no rashes, warm and dry Neurologic: PERRL, EOMI, accommodation nl, no face palsy, no dysarthria CN 's II-XI intact bilaterally and moves all extremities Psychiatric: Orientation: alert and oriented x 3 Principal Diagnosis Heart failure Discharge Exam Constitutional + ill appearing and + altered mental status Eyes - scleral icterus Neck catheter in left neck Respiratory no respiratory distress, no labored breathing and no retractions Cardiovascular - regular rate - equivocal JVD Gastrointestinal (Abdomen) - abdomen soft, guarding Skin no rashes, warm and dry Psychiatric Orientation: + not alert Discharge Data Allergies Allergy/AdvReac Type Severity Reaction Status Date / Time Penicillins Allergy Severe Swelling Verified 10/04/20 22:52 of Lip/Tongue/Throat Consultations 10/04/20 21:57 ED Decision to Admit Stat 10/05/20 11:33 Consult Cardiology Routine 10/06/20 11:41 Consult General Surgery Routine 10/06/20 13:54 Consult Founder Routine 10/06/20 14:22 Burn CD for patient Stat 10/06/20 14:42 Consult Nephrology Stat Ordered Studies 10/04/20 19:53 CT abd pelvis wo con Stat 10/04/20 22:55 US duplex portal hepatic veins Urgent 10/06/20 11:42 CT abd pelvis wo con Stat 10/06/20 14:15 US point of care ultrasound Routine Hospital Course (1) MODS (multiple organ dysfunction syndrome): Acute heart failure: Dheeraj Kay is a 64-year-old male with past medical history significant for hypertension, hyperlipidemia, type 2 diabetes; who presented to the ED on 10/04 for generalized weakness, dyspnea, and acutely worsening abdominal pain along with abnormal outpatient laboratory studies. Acute systolic heart failure, with secondary multi organ dysfunction syndrome -Patient presents with orthopnea, ascites, b/l LE edema, pulmonary congestion, dyspnea on exertion; PE findings of b/l pitting edema, systolic heart murmur, and congestion/wheezing on lung auscultation; EKG: evidence of old inferior infarct and old anterolateral infarct; Lab findings include elevated troponin (1->0.9->1.5) and elevated BNP; Echo: EF of 25-30% , mod-severe LV systolic dysfunction, lateral and interior wall akinesis, mild-mod global hypokinesis of LV, moderate LA dilation, calcified aortic valve, RV not well visualized. - Cardiology consulted. - Started on Diuretics - No response with lasix - so given bumex with no diuresis. - Also added carvedilol for afterload reduction. - Renal function worsened next am. - worsening abdominal pain - CT abdomen/pelvis done without contract due to worse renal function -no acute pathology and no sign of bowel ischemia. Surgery consulted - no concern of acute abdomen - Recheck bmp in the afternoon with worsening creatinine and K of 6.6 - given lactulose, insulin and D50. Emergent dialysis catheter placed. Nephro consulted - Underwent repeat - limited Echo with 10-15% EF -patient moved to ICU - Founder consulted. -started dobutamin drip - Patient transferred to [facility] for consideration of LVAD. Acute kidney injury: -Likely secondary to acute heart failure -Creatinine: 4.2 ( 2.31 at admission); Potassium level 6.6 -Poor urinary output: 700 mL after Rogers insertion at 1800 10/05, only 100 mL since then -Held diuretics this am and started dobutamine drip per Cardiology recommendation for management of low output heart failure to increase perfusion to kidneys and increase urinary output -nephrology consulted for ARF and consideration for HD given rapidly uptrending potassium and worsening cr. Patient transferred before getting evaluated Acute Liver Injury: -Likely secondary to acute heart failure due to hepatic congestion or liver hypoperfusion. Other etiologies were explored such as tickborne illness, portal vein thrombosis, hepatocellular carcinoma, viral illness, toxidrome, and acute pancreatitis; though these etiologies were less likely due to negative workup thus far with some labs still pending -AST: 1157 (downtrending from 1404 on 10/05, 2611 at admission), ALT: 1344 (downtrending from 1556 on 10/05, 1813 at admission), TBili: 13 (up from 2.2 on 10/05), DBili: 1.4 on 10/05, Cr: 3.75 (uptrending from 2.06 on 10/05, 2.31 at admission); -Recheck in the afternoon before transfer - worsening transaminases. Confusion: -Patient seeing things in his room that are not there, but it alert and oriented x 3. -Acute delirium likely from acute illness -Improved mentation at the time of discharge Hyponatremia: -Na level of 135, stable from 10/05, likely secondary to acute heart failure resulting in fluid overload Hyperkalemia: -K level of 5.2, likely secondary to acute renal failure and furosemide therapy -Recheck 6.6 before transfer Thrombocytopenia: -Plts down to 46, INR 2.4 -Presence of bleeding mucous membranes in the mouth, petechiae on the skin -Holding Lovenox due to possibility of medication-induced thrombocytopenia; DVT PPx SCDs prior to discharge -Another possible etiology include liver dysfunction, though not likely with a large acute drop in platelet count and improvement of other liver function tests Leukocytosis: -WBC 33 (uptrending from 17.50 on 10/05, 13.93 on 10/04) -Patient has been afebrile and has not been tachycardic; complains of abdominal and back pain -Possible etiology includes stress reaction from immense pain or bacteremia 2/2 translocation -UCx w/ skin debby -blood cultures and fungal cultures obtained -started Vancomycin and Ertapenem - right before transfer Hypertension/Hyperlipidemia: -Holding home oral regimen at this time Type 2 diabetes: -Hold home oral glyburide/Metformin -Levemir and Sliding scale insulin while in hospital (2) Ischemic cardiomyopathy: (3) Acute on chronic HFrEF (heart failure with reduced ejection fraction): (4) Acute heart failure: (5) Acute liver disease: (6) Hepatitis: (7) Acute kidney injury: (8) Abdominal pain: (9) Elevated troponin I level: Total Time Total Time Spent Total Time Spent (In Minutes): see attending attestation Discharge Plan Discharge Items Patient Disposition: Transfer Acute [facility] Reason For Visit: ACUTE LIVER INJURY Discharge Diagnosis: low output heart failure Condition on Discharge: Good Activity: Per Instructions section Non-emergency contact: Primary Care Provider and Manager Room Call non-emergency contact if: your symptoms worsen Follow-up/Referrals: Sangita Nguyen MD [Primary Care Provider] - Diet: Nothing by Mouth Addtl Attending Provider Instructions: Per transferred facility. Pending Studies at Discharge: No Stand-Alone Forms: [facility], [facility] Skilled Items Patient informed of condition?: Yes DNR: No Discharge Level of Care: Other Communicable Disease: No Discharge Prognosis: Stable Lines: Peripheral IV Urinary Catheter: Yes Medications and DC Order Prescriptions: Discontinued pravastatin 40 mg tablet 40 mg PO QPM RF: 0 trazodone 100 mg tablet 50 mg PO HS RF: 0 glyburide-metformin 5-500 mg tablet 1 tab PO QAM RF: 0 lisinopril-hydrochlorothiazide 10-12.5 mg tablet 1 tab PO QAM RF: 0 bupropion HCl 300 mg tablet extended release 24 hr 300 mg PO QAM RF: 0 torsemide 20 mg tablet 20 mg PO QAM RF: 0 fenofibrate 160 mg tablet 160 mg PO HS RF: 0 aspirin [Aspirin Low Dose] 81 mg Tablet,Delayed Release (Dr/Ec) 81 mg PO QAM RF: 0 cyanocobalamin (vitamin B-12) [Vitamin B-12] 1,000 mcg Tablet 1,000 mcg PO QAM RF: 0 Levemir FlexTouch U-100 Insuln 100 unit/mL (3 mL) insulin pen 40 unit SUBCUT QAM RF: 0 Discharge Orders: Discharge Order (Routine); Ordered 10/06/20 Ordered By: Raulito Moss/Other Patient Handouts: A1C, Managing Type 2 Diabetes Admission Data Admit Date/Time: 10/04/20 22:55 Attending Provider: Heidi Dutton Admit Provider: Nate López Primary Care Provider: Sangita Nguyen Other Providers: Alexandro Guzmán ; Ricky Fontanez ; Baltazar Mesa ; Rodolfo Ramirez ; Tavia Greenberg Supervising Physician Co-Signing Physician Notes Resident Physician Supervision Note: I independently interviewed and examined the patient and verified the doty h istory and physical, reviewed labs and image studies and agree with resident Dr. Flores findings and care plan. Reported persistent abdominal pain. No shortness of breath or chest pain In distress, Heart regular rate rhythm, lung clear, JVD +, bilateral leg edema, Very tender on abdominal palpation. No improvement with diuresis. worse renal function. due to severity of abdominal symptoms- consulted surgery and ordered CT scan Spoke to cardiology and surgery rechecked labs - elevated k, creatinine, lower platelet limited echo showed worse EF to 10-15% Spoke to Dr. Ramirez transferred to ICU. Spent 60min of critical care time. Resident Activity Tracking Resident Involvement: Resident Care Provided Care Provided: Adult Hospital Medicine CBC Results Results Complete Blood Count Results: RBC 5.46 M/uL (4.7-6.1) 10/06/20 WBC 33.02 K/uL (4.8-10.8) H* 10/06/20 Hgb 16.2 g/dL (14.0-18.0) 10/06/20 Hct 48.0 % (42-52) 10/06/20 Plt Count 46 K/uL (130-400) L 10/06/20 Chemistry ([facility]) Results BMP Results: Sodium 133 mmol/L (136-145) L 10/06/20 Potassium 5.2 mmol/L (3.5-5.1) H 10/06/20 Chloride 102 mmol/L (98-107) 10/06/20 BUN 77 mg/dl (7-18) H 10/06/20 Creatinine 4.20 mg/dl (0.6-1.4) H 10/06/20 Glucose 128 mg/dl (70-99) H 10/06/20
[2020-10-06] MEDS ORDERED: ERTAPENEM SODIUM 500 MG in SODIUM CHLORIDE 0.9% 50 ML IV SCH (17:00)
--- NOTE | 2020-10-06 20:12 | Billing Data ---
Date of Service October 06, 2020 Coding Level of Care Code 22249 Initial Inpt Care Lvl 3
[2020-10-07 04:47] LABS: Hepatitis A Antibody IgM NON-REACTIVE (NON-REACTIVE); Hepatitis B Core Antibody IgM NON-REACTIVE (NON-REACTIVE)
[2020-10-07 12:41] LABS: iSTAT Arterial Blood Gas HCO3 18 meg/L (19-24); iSTAT Arterial Blood Gas pCO2 30 mmHg (35-46); iSTAT Arterial Blood Gas pH 7.37 (7.35-7.45); iSTAT Arterial Blood Gas pO2 113 mmHg (80-95); iSTAT Carbon Dioxide 19 mmol/L (24-31)
[2020-10-07 12:42] LABS: iSTAT Allen Test Not Performed; iSTAT Sample Type Arterial; iSTAT Site Art Line
[2020-10-07 12:43] LABS: iSTAT SpO2 97
[2020-10-08 12:11] LABS: AFP Tumor Marker Serum 1.3 ng/mL (<6.1); Anti Nuclear Antibody Screen NEGATIVE (NEGATIVE); CMV IgM Antibody <30.00 AU/mL; EBV Virus Capsid Ag IgG Ab >750.00 U/mL; Epstein Barr Virus Early Ag Ab >150.00 U/mL
[2020-10-10 09:12] LABS: MDA negative; MDEA negative; MDMA (Ecstasy) Urine, Confirm negative
== END 2020-10-06 17:52 | disposition short-term general hospital (02) | DRG 291 ==
LOC: ED 19:04 → 2S 22:55 → SUATTDRO 22:55 → 2S 10-05 01:23 → 1E 10-06 13:56